=== PATIENT | female | born 1950 | race Caucasian/White ===

== ENCOUNTER 2017-03-14 07:38 | Inpatient (IN) | payer OTHER ==
[~2017-03-14] VITALS: Ht 157.5 cm; Wt 112.0 kg
[~2017-03-14 07:38] MED LIST: ASPI325T4 PO; DOCU-144 PO; ENOX40DI2 SC; GABA300C PO; IPRA3AMP HHN; LEVO500T72 PO; METF500T PO; NYST30PO5 TOP; POTA10TA15 PO; SIMV20TA6; ZOF4I IV; [UNRECOGNIZED DRUG - CODE] IV
[2017-03-14] MEDS ORDERED: ALBUTEROL 0.083% (NEB) 2.5 MG/3 ML AMP HHN STA (07:46)
[2017-03-14] MEDS ORDERED: IPRATROPIUM (NEB) 0.5 MG/2.5 ML AMP HHN ONE (08:00)
--- NOTE | 2017-03-14 08:11 | RADRPT ---
PROCEDURE: XR Chest. CLINICAL INDICATION: Chest pain TECHNIQUE: Single frontal view of the chest was obtained COMPARISON: CR CHEST 05/10/2015 FINDINGS: The heart is enlarged. The thoracic aorta is calcified. There are right upper lobe, right lower lobe and left lower lobe infiltrates. There is no pleural effusion or pneumothorax. RPTAT: AA IMPRESSION: Patchy right upper lobe, right lower lobe and left lower lobe infiltrates. Mild cardiomegaly. Calcified aorta consistent with atherosclerotic disease. .Rober Coughlin MD, Date Time Electronically viewed and signed by .Rober Coughlin MD, on 03/14/2017 08:10 .S/
[2017-03-14] MEDS ORDERED: CEFEPIME 2GM/50 ML (PMX) 50 ML IVPB STA (08:14)
[2017-03-14] MEDS ORDERED: SODIUM CHLORIDE 0.9% 1L BAG IV* STA (08:14)
[2017-03-14] MEDS ORDERED: VANCOMYCIN 1 GM (PMX) 250 ML IVPB ONE (08:30)
--- NOTE | 2017-03-14 10:54 | ERD ---
ER Documentation Chief Complaint Chief Complaint sob since waking up worse than normal. low o2 sat, no chest pain HPI Patient is a 66-year-old female with CHF and diabetes who presents with shortness of breath. The patient is altered per the medics report per the family. The patient is "not caring for herself". She was at 70% oxygen on her usual home oxygen. The patient was brought in by ambulance. The symptoms started a few days ago with cough. She has had no fevers. Her primary doctor is at [facility]. Please note the history and physical exam is limited secondary to the patient's mental status. ROS All systems reviewed and are negative except as per history of present illness. Medications Home Meds Active Scripts Levofloxacin* (Levaquin*) 500 Mg Tablet, 500 MG PO DAILY for 7 Days, TAB Prov:KERRIE RIOS MD 05/12/15 Ondansetron Hcl* (Zofran*) 2 Mg/Ml Soln, 4 MG IV Q6H Y for NAUSEA AND/OR VOMITING for 10 Days Prov:KERRIE RIOS MD 05/12/15 Potassium Chloride (Klor-Con M10) 10 Meq Tabsr, 10 MEQ PO DAILY for 10 Days Prov:KERRIE RIOS MD 05/12/15 Nystatin* (Nystop* Powder) 1 Applic Powder, 1 APPLIC TOP QID for 10 Days Prov:KERRIE RIOS MD 05/12/15 Methylprednisolone Sodium Succinate (Solu-Medrol) 125 Mg Soln, 60 MG IV Q6H for 7 Days Prov:KERRIE RIOS MD 05/12/15 Metformin Hcl (Glucophage) 500 Mg Tab, 1000 MG PO WITH BREAKFAST for 30 Days, TAB Prov:KERRIE RIOS MD 05/12/15 Ipratropium-Albuterol (Ipratropium-Albuterol) 3 Ml Nebu, 3 ML HHN Q4H RESP THERAPY for 10 Days Prov:KERRIE RIOS MD 05/12/15 Gabapentin* (Neurontin*) 300 Mg Cap, 300 MG PO DAILY for 30 Days, CAP Prov:KERRIE RIOS MD 05/12/15 Enoxaparin Sodium* (Enoxaparin Sodium*) 40 Mg/0.4 Ml Soln, 40 MG SC DAILY for 30 Days Prov:KERRIE RIOS MD 05/12/15 Docusate Sodium* (Colace*) 100 Mg Cap, 100 MG PO Q12H Y for CONSTIPATION for 30 Days, CAP Prov:KERRIE RIOS MD 05/12/15 Aspirin (Aspirin Lite-Coat) 325 Mg Tab, 325 MG PO DAILY for 30 Days, TAB Prov:KERRIE RIOS MD 05/12/15 Reported Medications Simvastatin (Simvastatin) 20 Mg Tablet 05/10/15 Allergies Allergies: Coded Allergies: erythromycin base (Unverified Allergy, Severe, 05/10/15) PMhx/Soc History of Surgery: No Hx Neurological Disorder: No Hx Respiratory Disorders: Yes (COPD) Hx Cardiac Disorders: Yes (HTN, CHF) Hx Miscellaneous Medical Probl: Yes Hx Alcohol Use: No Hx Substance Use: No Hx Tobacco Use: No Smoking Status: Never smoker FmHx Family History: diabetes Physical Exam Vitals Vital Signs Date Time Temp Pulse Resp B/P Pulse Ox O2 Delivery O2 Flow Rate FiO2 03/14/17 10:41 99 24 119/55 77 Mask 6.0 03/14/17 08:26 Non Rebreather 15.0 03/14/17 08:15 6 15.0 100 03/14/17 08:15 97 28 95 Non Rebreather Mask 15.0 100 03/14/17 07:56 Non Rebreather 10 03/14/17 07:46 97.6 92 28 148/87 95 Physical Exam Const: Moderate distress Head: Atraumatic Eyes: Normal Conjunctiva ENT: Normal External Ears, Nose and Mouth. Neck: Full range of motion..~ No meningismus. Resp: Rhonchorous breath sounds diffusely Cardio: Regular rate and rhythm, no murmurs Abd: Soft, non tender, non distended. Normal bowel sounds Skin: No petechiae or rashes Back: No midline or flank tenderness Ext: No cyanosis, or edema Neur: Awake but confused Result Diagram: 03/14/17 0800 03/14/17 0800 Results 24 hrs Laboratory Tests Test 03/14/17 08:00 03/14/17 10:18 White Blood Count 19.610^3/ul Red Blood Count 3.9510^6/ul Hemoglobin 11.4g/dl Hematocrit 40.0% Mean Corpuscular Volume 101.3fl Mean Corpuscular Hemoglobin 28.9pg Mean Corpuscular Hemoglobin Concent 28.5g/dl Red Cell Distribution Width 15.2% Platelet Count 56940^3/UL Mean Platelet Volume 10.6fl Neutrophils % 75.5% Lymphocytes % 11.0% Monocytes % 9.9% Eosinophils % 1.4% Basophils % 0.4% Nucleated Red Blood Cells % 0.5/100WBC Neutrophils # 14.810^3/ul Lymphocytes # 2.210^3/ul Monocytes # 1.910^3/ul Eosinophils # 0.310^3/ul Basophils # 0.110^3/ul Nucleated Red Blood Cells # 0.110^3/ul Prothrombin Time 14.7Sec Prothrombin Time Ratio 1.1 INR International Normalized Ratio 1.15 Activated Partial Thromboplast Time 24.3Sec Sodium Level 146mmol/L Potassium Level 4.7mmol/L Chloride Level 102mmol/L Carbon Dioxide Level 36mmol/L Anion Gap 13 Blood Urea Nitrogen 45mg/dl Creatinine 2.18mg/dl Glucose Level 163mg/dl Lactic Acid Level 1.1mmol/L 0.9mmol/L Calcium Level 9.3mg/dl Total Bilirubin 0.1mg/dl Direct Bilirubin 0.00mg/dl Indirect Bilirubin 0.1mg/dl Aspartate Amino Transf (AST/SGOT) 29IU/L Alanine Aminotransferase (ALT/SGPT) 25IU/L Alkaline Phosphatase 152IU/L Troponin I < 0.012ng/ml Total Protein 8.6g/dl Albumin 3.6g/dl Globulin 5.00g/dl Albumin/Globulin Ratio 0.72 Current Medications Medications (Trade) Dose Ordered Sig/Obed Route PRN Reason Start Time Stop Time Status Last Admin Dose Admin Albuterol (Proventil 0.083% (Neb)) 5 mg ONCE STAT HHN 03/14/17 07:46 03/14/17 07:47 DC 03/14/17 07:46 Ipratropium [place] (Atrovent 0.02% (Neb)) 0.5 mg ONCE ONCE HHN 03/14/17 08:00 03/14/17 08:01 DC 03/14/17 08:00 Sodium Chloride 3100 ml 3,100 ml BOLUS OVER 2 HOURS STAT IV* 03/14/17 08:14 03/14/17 08:22 DC 03/14/17 08:44 Cefepime HCl 50 ml @ 100 mls/hr ONCE STAT IVPB 03/14/17 08:14 03/14/17 08:43 DC Vancomycin HCl (Vancocin) 250 ml @ 125 mls/hr ONCE ONCE IVPB 03/14/17 08:30 03/14/17 10:29 DC 03/14/17 08:44 Procedures/MDM Chest x-ray shows pneumonia per radiology. EKG read by me: Rate/Rhythm: Regular rate and rhythm at a normal rate Intervals: Normal Impression: No evidence of ischemia or arrhythmia Admit MDM: Patient's infectious symptoms have not stabilized and the patient is at risk of rapid decompensation. The patient will be admitted for careful hydration, antibiotic therapy, and infectious source control. Severe Sepsis criteria: Infectious source: Pneumonia End organ damage indicated by: Creatinine greater than 2 Sepsis Management: Time of recognition of sepsis: Upon arrival Within 3 hours of recognition: Blood cultures x 2 before broad-spectrum antibiotics: Yes 30 ml/kg NS bolus Completed Initial lactate 1.1 Repeat lactate pending Time of recognition of septic shock: No septic shock Septic Shock Assessment: Any lactic acid > 4.0 No Persistent hypotension (SBP < 90 or 40 mmHg drop, MAP < 65) despite 30 mL/kg IV fluid bolus No Volume Re-assessment for Septic Shock (post 30 ml/kg bolus): No septic shock at this time Persistent Hypotension Treatment: Comfort care No Central line Not Required Vasopressor started Not required I considered further perfusion assessment with CVP measurement, SCVO2, bedside ultrasound volume assessment, passive leg raise, trial of further fluid bolus. And proceeded with 30 ml/kg fluid bolus of NSS, broad spectrum antibiotics, and admission. Accepting Care Team Current data and ongoing care discussed. Admitting Physician: Dr. Mendoza from [facility] as the patient has [facility] dental insurance coordinator(s): None Outstanding Data: Culture results and repeat lactic acid Critical Care: Critical care time 35 minutes excluding all billable procedures Emergent fluid management while maintaining close respiratory support. Provision of immediate and broad-spectrum antibiotic therapy. Simultaneous assessment for possible sources in order to direct targeted therapy. Consideration for invasive and chemical support to prevent cardiopulmonary collapse. Departure Diagnosis: Primary Impression: Severe sepsis Additional Impressions: Shortness of breath Pneumonia Pneumonia type: due to unspecified organism Laterality: right Lung location : upper lobe of lung Qualified Code: J18.1 - Pneumonia of right upper lobe due to infectious organism Condition: Serious ALDA CARRASCO MD Mar 14, 2017 10:54
[2017-03-14] MEDS ORDERED: ACETAMINOPHEN 325 MG TAB PO PRN ×2 (12:30→13:00)
[2017-03-14] MEDS ORDERED: DOCUSATE SODIUM 100 MG CAP PO PRN (12:30)
[2017-03-14] MEDS ORDERED: ONDANSETRON 4 MG INJ IV PRN ×3 (12:30→13:00)
--- NOTE | 2017-03-14 12:35 | HP ---
Date/Time of Note Date/Time of Note DATE: 03/14/17 TIME: 12:35 Assessment/Plan VTE Prophylaxis VTE Prophylaxis Intervention: heparin Assessment/Plan Assessment/Plan 1. Acute hypoxic respiratory failure secondary to pneumonia - Patient found to be saturating 70% prior to presenting to ED. Was still saturating in 80% on Ventimask - ABG showed respiratory acidosis and started on BIPAP - CXR showed RUL, RML, and LLL PNA. Started on Vanc and Cefepime - Pulmonology consulted and awaiting recommendations. - Repeat ABG and wean off BIPAP as tolerated. - Admitted to [facility] in past 04/2015 with same issues and resolved on BIPAP 2. Severe sepsis secondary to Pneumonia - Patient found tachypneic, tachycardiac, hypoxic, with elevated WBC - Lactic acid normal - Given fluid bolus in ED but hold off for now in setting of acute CHF - On Vancomycin and Cefepime - Steroids started and neb treatments 3. Acute on chronic diastolic heart failure - BNP 1250 - ECHO ordered - Lasix IV - Cardiology consultation placed and awaiting further recommendations 4. EDWIN , may be secondary to cardiorenal - Will continue to monitor and if no improvement will consult Nephrology - Will order renal US 5. Anemia - will order iron studies - no acute bleeding appreciated 6. Diabetes Mellitus - A1c 6.6 - Hold home metformin - accuchecks and ISS 7. HTN - stable - continue monitoring 8. COPD - no wheezing appreciated - neb treatments 9. Diet - NPO until more awake 10. Code status - Full, but will clarify with family 11. GI ppx - Pepcid 12. DVT ppx - Heparin 13. Disposition - Will admit to telemetry for further evaluation and stabilization. Once stable with transfer to [place] HPI/ROS Admit Date/Time Admit Date/Time 03/14/17 Hx of Present Illness 66 yo F with PMH DM, obesity, COPD, HTN, and CHF presented to ED from home. Per EMS patient was told by family she has not been caring for herself and was found to be saturating in the 70%. Patient was altered and unable to obtain history. Patient was just grunting when asked name and location. History obtained from ED, past medical encounters, and EMS. Per ED physician, patient was brought in by ambulance and is a [place] patient but was not stable to transfer due to desaturating while even on ventimask. During interview, patient was on ventimask, saturating 84%. Patient was last seen at [facility] in 2014 for similar issues. CXR performed showed patchy right upper lobe, right lower lobe and left lower lobe infiltrates. ABG performed showed pH 7.174, PCO2 81 and was started on BIPAP. She was also found to have mild cardiomegaly on CXR with BNP 1250. ROS All 12 systems reviewed but due to patients altered mental status was unable to obtain fully. Constitutional: disoriented Respiratory: cough, shortness of breath, No wheezing Cardiovascular: edema, No chest pain Psychological: confusion PMH/Family/Social Past Medical History Medical History: congestive heart failure, diabetes, high cholesterol, hypertension Past Surgical History Past Surgical Hx: no surgical history Family History Significant Family History: no pertinent family hx Social History Alcohol Use: none Smoking Status: Never smoker Drug Use: none Exam/Review of Systems Vital Signs Vitals Vital Signs Date Time Temp Pulse Resp B/P Pulse Ox O2 Delivery O2 Flow Rate FiO2 03/14/17 12:13 102 23 135/62 84 Non Rebreather 8.0 03/14/17 11:15 97.6 03/14/17 08:15 100 Exam Constitutional: distress, No alert, No oriented Psych: confusion Head: atraumatic, normocephalic Eyes: nl conjunctiva, nl sclera ENMT: mucosa pink and moist Neck: supple Respiratory: crackles/rales, diminished breath sounds, labored breathing, other (regular rhythm, tachycardia), No wheezing Cardiovascular: edema, No murmurs/extra sounds, No systolic murmur Gastrointestinal: bowel sounds, non-tender, soft, No ascites, No distended, No rebound or guarding, No tender Musculoskeletal: nl extremities to inspection Extremities: edema, No clubbing, No cyanosis Neurological: confused, lethargic, No nl mental status Skin: No ecchymosis, No laceration Lymph: nl lymph nodes Labs Result Diagram: 03/14/17 0800 03/14/17 0800 Medications Medications home medications reviewed Procedures Procedures PROCEDURE: XR Chest. CLINICAL INDICATION: Chest pain TECHNIQUE: Single frontal view of the chest was obtained COMPARISON: CR CHEST 05/10/2015 FINDINGS: The heart is enlarged. The thoracic aorta is calcified. There are right upper lobe, right lower lobe and left lower lobe infiltrates. There is no pleural effusion or pneumothorax. RPTAT: AA IMPRESSION: Patchy right upper lobe, right lower lobe and left lower lobe infiltrates. Mild cardiomegaly. Calcified aorta consistent with atherosclerotic disease. GABRIEL GILMORE MD Mar 14, 2017 12:35
[2017-03-14] MEDS: ALBUTEROL/IPRATROPIUM (NEB) 3 ML AMP HHN SCH ×2 (12:55→22:45)
[2017-03-14] MEDS ORDERED: NACL 0.9% 3 ML SYG IV SCH (13:00)
[2017-03-14] MEDS ORDERED: MAGNESIUM HYDROXIDE 30ML CUP PO PRN (13:00)
[2017-03-14] MEDS ORDERED: ALBUTEROL 0.083% (NEB) 2.5 MG/3 ML AMP HHN PRN (13:00)
[2017-03-14] MEDS ORDERED: VANCOMYCIN IV PER PHARMACY XX SCH (13:00)
[2017-03-14] MEDS: METHYLPREDNISOLONE 125 MG INJ IV SCH ×2 (13:32→18:30)
[2017-03-14] MEDS ORDERED: CEFEPIME 2GM/50 ML (PMX) 50 ML IVPB SCH (14:00)
--- NOTE | 2017-03-14 16:32 | RADRPT ---
PROCEDURE: Renal US. CLINICAL INDICATION: Renal insufficiency TECHNIQUE: Multiple sonographic images of the kidneys were obtained. COMPARISON: No prior studies are available for comparison. FINDINGS: The kidneys are well visualized. The right kidney measures 11.8 cm. The left kidney measures 13.0 cm . Normal renal cortical echogenicity. No evidence of shadowing renal calculi. No hydronephrosis. No rmal appearance of the urinary bladder. IMPRESSION: Normal renal ultrasound. RPTAT:AAJJ Physician Esau Date Time Electronically viewed and signed by Yamini Cotton Physician on 03/14/2017 16:32 /
[2017-03-14] MEDS ORDERED: GLUCOSE GEL 15 GRAM TUBE BUCCAL PRN (17:00)
[2017-03-14] MEDS ORDERED: GLUCOSE GEL 15 GRAM TUBE PO PRN ×2 (17:00)
[2017-03-14] MEDS ORDERED: DEXTROSE 50% 50 ML SYRINGE IV PRN ×2 (17:00)
[2017-03-14] MEDS ORDERED: GLUCAGON 1 MG INJ IM PRN (17:00)
--- NOTE | 2017-03-14 18:27 | RADRPT ---
Echocardiogram Report Patient Name: DESI ESCALANTE Gender: Female Date: 1950 Study Date: 14-Mar-2017 Armature Tester: Prieto Blackwood RDCS Location: [facility] Ref. Physician: GABRIEL GILMORE Quality: Good Procedures: Transthoracic echocardiogram with complete 2D, M-Mode, and doppler examination. Indications: Shortness of breath. 2D/M Mode Doppler Measurement Value Normal Ranges Measurement Value Normal Ranges LVIDd 2D 4.2 3.5 - 5.6 cm AV Peak [place] 1.7 m/sec LVIDs 2D 2.5 2.1 - 4.1 cm AV Peak PG 11.8 mmHg LVPWd 2D 1.0 0.6 - 1.1 cm LVOT Peak [place] 1.1 m/sec IVSd 2D 1.1 0.6 - 1.1 cm LVOT Peak PG 4.7 mmHg AoR Diam 2D 2.7 2.0 - 3.7 cm MV E Peak [place] 1.0 m/sec EDV 2D 77.0 cm3 MV A Peak [place] 0.8 m/sec ESV 2D 16.0 cm3 MV E/A 1.3 LA Dimen 2D 2.9 2.3 - 4.0 cm MV Decel Time 158 msec MV Decel [place] 6 MV E/A 1.3 TR Peak [place] 2.9 m/sec TR Peak PG 33.2 mmHg RVSP 48.0 mmHg Findings Left Ventricle: Normal left ventricular systolic function. Normal left ventricular cavity size. Mild concentric left ventricular hypertrophy. Ejection fraction is visually estimated at 6065 %. Right Ventricle: Normal right ventricular size. Normal right ventricular systolic function. Left Atrium: The left atrium is normal in size. Right Atrium: The right atrium is normal in size. Mitral Valve: Mitral valve leaflets appear mildly thickened. Mild mitral annular calcification. Trace mitral regurgitation. Aortic Valve: No significant aortic stenosis or insufficiency. Aortic cusps appear mildly calcified. Tricuspid Valve: Normal appearance of the tricuspid valve. Estimated peak PA systolic pressure 48 mmHg. There is mild tricuspid regurgitation. Pulmonic Valve: Pulmonic valve not well visualized. Pericardium: Normal pericardium with no significant pericardial effusion. Aorta: Normal aortic root. IVC: Dilated IVC without respiratory collapse, however, patient on bipap. Conclusions 1.Normal left ventricular systolic function. Normal left ventricular cavity size. Mild concentric left ventricular hypertrophy. Ejection fraction is visually estimated at 60-65 %. 2.Mitral valve leaflets appear mildly thickened. Mild mitral annular calcification. Trace mitral regurgitation. 3.Normal appearance of the tricuspid valve. Estimated peak PA systolic pressure 48 mmHg. There is mild tricuspid regurgitation. Electronically Signed By: Jorge Stewart 14-Mar-2017 18:27:05 -0700 Patient Name: DESI ESCALANTE Study Date: 14-Mar-2017 [id number]
--- NOTE | 2017-03-14 18:27 | RADRPT ---
Echocardiogram Report Patient Name: DESI ESCALANTE Gender: Female Date: 1950 Study Date: 14-Mar-2017 Pharmacy Operations Specialist: Prieto Blackwood RDCS Location: [facility] Ref. Physician: GABRIEL GILMORE Quality: Good Procedures: Transthoracic echocardiogram with complete 2D, M-Mode, and doppler examination. Indications: Shortness of breath. 2D/M Mode Doppler Measurement Value Normal Ranges Measurement Value Normal Ranges LVIDd 2D 4.2 3.5 - 5.6 cm AV Peak [place] 1.7 m/sec LVIDs 2D 2.5 2.1 - 4.1 cm AV Peak PG 11.8 mmHg LVPWd 2D 1.0 0.6 - 1.1 cm LVOT Peak [place] 1.1 m/sec IVSd 2D 1.1 0.6 - 1.1 cm LVOT Peak PG 4.7 mmHg AoR Diam 2D 2.7 2.0 - 3.7 cm MV E Peak [place] 1.0 m/sec EDV 2D 77.0 cm3 MV A Peak [place] 0.8 m/sec ESV 2D 16.0 cm3 MV E/A 1.3 LA Dimen 2D 2.9 2.3 - 4.0 cm MV Decel Time 158 msec MV Decel [place] 6 MV E/A 1.3 TR Peak [place] 2.9 m/sec TR Peak PG 33.2 mmHg RVSP 48.0 mmHg Findings Left Ventricle: Normal left ventricular systolic function. Normal left ventricular cavity size. Mild concentric left ventricular hypertrophy. Ejection fraction is visually estimated at 6065 %. Right Ventricle: Normal right ventricular size. Normal right ventricular systolic function. Left Atrium: The left atrium is normal in size. Right Atrium: The right atrium is normal in size. Mitral Valve: Mitral valve leaflets appear mildly thickened. Mild mitral annular calcification. Trace mitral regurgitation. Aortic Valve: No significant aortic stenosis or insufficiency. Aortic cusps appear mildly calcified. Tricuspid Valve: Normal appearance of the tricuspid valve. Estimated peak PA systolic pressure 48 mmHg. There is mild tricuspid regurgitation. Pulmonic Valve: Pulmonic valve not well visualized. Pericardium: Normal pericardium with no significant pericardial effusion. Aorta: Normal aortic root. IVC: Dilated IVC without respiratory collapse, however, patient on bipap. Conclusions 1.Normal left ventricular systolic function. Normal left ventricular cavity size. Mild concentric left ventricular hypertrophy. Ejection fraction is visually estimated at 60-65 %. 2.Mitral valve leaflets appear mildly thickened. Mild mitral annular calcification. Trace mitral regurgitation. 3.Normal appearance of the tricuspid valve. Estimated peak PA systolic pressure 48 mmHg. There is mild tricuspid regurgitation. Electronically Signed By: Jorge Stewart 14-Mar-2017 18:27:05 -0700 Patient Name: DESI ESCALANTE Study Date: 14-Mar-2017 [id number]
--- NOTE | 2017-03-14 18:27 | RADRPT ---
Echocardiogram Report Patient Name: DESI ESCALANTE Gender: Female Date: 1950 Study Date: 14-Mar-2017 Tare Weigher: Prieto Blackwood RDCS Location: [facility] Ref. Physician: GABRIEL GILMORE Quality: Good Procedures: Transthoracic echocardiogram with complete 2D, M-Mode, and doppler examination. Indications: Shortness of breath. 2D/M Mode Doppler Measurement Value Normal Ranges Measurement Value Normal Ranges LVIDd 2D 4.2 3.5 - 5.6 cm AV Peak [place] 1.7 m/sec LVIDs 2D 2.5 2.1 - 4.1 cm AV Peak PG 11.8 mmHg LVPWd 2D 1.0 0.6 - 1.1 cm LVOT Peak [place] 1.1 m/sec IVSd 2D 1.1 0.6 - 1.1 cm LVOT Peak PG 4.7 mmHg AoR Diam 2D 2.7 2.0 - 3.7 cm MV E Peak Fr[place] 1.0 m/sec EDV 2D 77.0 cm3 MV A Peak [place] 0.8 m/sec ESV 2D 16.0 cm3 MV E/A 1.3 LA Dimen 2D 2.9 2.3 - 4.0 cm MV Decel Time 158 msec MV Decel [place] 6 MV E/A 1.3 TR Peak Frans[place] 2.9 m/sec TR Peak PG 33.2 mmHg RVSP 48.0 mmHg Findings Left Ventricle: Normal left ventricular systolic function. Normal left ventricular cavity size. Mild concentric left ventricular hypertrophy. Ejection fraction is visually estimated at 6065 %. Right Ventricle: Normal right ventricular size. Normal right ventricular systolic function. Left Atrium: The left atrium is normal in size. Right Atrium: The right atrium is normal in size. Mitral Valve: Mitral valve leaflets appear mildly thickened. Mild mitral annular calcification. Trace mitral regurgitation. Aortic Valve: No significant aortic stenosis or insufficiency. Aortic cusps appear mildly calcified. Tricuspid Valve: Normal appearance of the tricuspid valve. Estimated peak PA systolic pressure 48 mmHg. There is mild tricuspid regurgitation. Pulmonic Valve: Pulmonic valve not well visualized. Pericardium: Normal pericardium with no significant pericardial effusion. Aorta: Normal aortic root. IVC: Dilated IVC without respiratory collapse, however, patient on bipap. Conclusions 1.Normal left ventricular systolic function. Normal left ventricular cavity size. Mild concentric left ventricular hypertrophy. Ejection fraction is visually estimated at 60-65 %. 2.Mitral valve leaflets appear mildly thickened. Mild mitral annular calcification. Trace mitral regurgitation. 3.Normal appearance of the tricuspid valve. Estimated peak PA systolic pressure 48 mmHg. There is mild tricuspid regurgitation. Electronically Signed By: Jorge Stewart 14-Mar-2017 18:27:05 -0700 Patient Name: DESI ESCALANTE Study Date: 14-Mar-2017 [id number]
[2017-03-14] MEDS ORDERED: VANCOMYCIN 1 GM in NS 250 ML IVPB ONE (18:30)
[2017-03-14] MEDS: FUROSEMIDE 100 MG INJ IV SCH (18:33)
[2017-03-14] MEDS: FAMOTIDINE 20 MG INJ IV SCH (20:45)
[2017-03-14] MEDS: HEPARIN 5,000 UNIT/0.5 ML VIAL SC SCH (21:07)
[2017-03-14] MEDS: ATORVASTATIN 20 MG TAB PO SCH (21:17)
[2017-03-14] MEDS: INSULIN ASPART [NOVOLOG] 3 ML PEN SC SCH (21:18)
[2017-03-14] MEDS ORDERED: LORAZEPAM 2 MG INJ IV ONE (21:26)
[2017-03-15] VITALS (30 sets, daily range): BP systolic 112–146; BP diastolic 43–95; PULSE 80–107; RESP 17–30; TEMP 97.8; Ht 157.5 cm; Wt 112.0 kg
[2017-03-15] MEDS: ALBUTEROL/IPRATROPIUM (NEB) 3 ML AMP HHN SCH ×6 (00:37→21:20)
[2017-03-15] MEDS: INSULIN ASPART [NOVOLOG] 3 ML PEN SC SCH ×6 (01:00→21:05)
[2017-03-15] MEDS: ACCU-CHEK XX SCH (02:00)
--- NOTE | 2017-03-15 03:55 | CONS ---
DATE OF ADMISSION: 03/14/2017 DATE OF CONSULTATION: 03/14/2017 PULMONARY CONSULTATION REASON FOR CONSULT: Hypoxemic and hypercapnic respiratory failure. Thank you, Dr. Nelson, for this consultation. HISTORY OF PRESENT ILLNESS: This is a morbidly obese 66-year-old lady who presented to the emergenc y room with increasing shortness of breath, orthopnea, PND. She is a poor historian, currently on B iPAP. No family members are present, history is entirely from the chart. On admission found to be hypoxemic and hypercapnic, placed on noninvasive positive pressure ventilation. Initial arterial bl ood gas pH 7.17, pCO2 of 81. PAST MEDICAL HISTORY: 1. COPD. 2. Hypertension. 3. Hyperlipidemia. 4. Obstructive sleep apnea. 5. Morbid obesity. MEDICATIONS: Per chart. ALLERGIES: NONE. SOCIAL HISTORY: Tobacco unknown. SYSTEMS REVIEW: Currently unable to perform. PHYSICAL EXAMINATION: GENERAL: Moderately obese lady on BiPAP, arousable but not answering questions or following command s. VITAL SIGNS: Currently afebrile, temperature 98, pulse is 100, blood pressure 135/62, O2 sat 96% on FIO2 of 50%. NECK: Supple. No JVD or lymphadenopathy. CARDIAC: S1, S2, no added sounds or murmurs. CHEST: Diminished air entry. ABDOMEN: Soft, nontender. No guarding or rebound. EXTREMITIES: No cyanosis, clubbing, edema. NEUROLOGIC: Unable to assess. LABORATORIES: ABG: pH 7.17, pCO2 of 81, pO2 of 176. BNP 1250. BUN 45, creatinine 2.18. Lactic a roque 0.9. DIAGNOSTIC DATA: Chest x-ray shows patchy right upper lobe and lower lobe infiltrates. IMPRESSION AND PLAN: 1. Hypoxemic and hypercapnic respiratory failure. 2. Likely underlying obstructive sleep apnea. 3. Likely congestive cardiac failure. 4. Chronic renal insufficiency. 5. Incomplete data. RECOMMENDATIONS: 1. Continued noninvasive positive pressure ventilation with frequent arterial blood gases. 2. Continue broad-spectrum antibiotics. 3. Steroid taper. 4. Bronchodilators. 5. DVT and GI prophylaxis. Overall prognosis is guarded. Dictated By: BRENDA MARIE/DERECK Conf#: [id number] DID#: [id number]
--- NOTE | 2017-03-15 04:04 | CONS ---
DATE OF ADMISSION: 03/14/2017 DATE OF CONSULTATION: 03/14/2017 CARDIAC CONSULTATION REASON FOR CONSULTATION: Congestive heart failure exacerbation. REQUESTING PHYSICIAN: Dr. Nelson from the hospitalist service. HISTORY OF PRESENT ILLNESS: Ms. Resendiz is a 66-year-old female with a history of diabetes mellitus, hypertension, chronic obstructive pulmonary disease, obesity, who had initially presented with wors ening shortness of breath. Upon arrival in the emergency department, temperature of 97.6, blood pre ssure 140/87, pulse 92, respiratory rate 28, saturating 95%. The patient's labs revealed white coun t 19.6, hemoglobin 11.4, platelet count of 288. Sodium of 146, potassium 4.7, creatinine 2.1, BUN 4 5. INR of 1.1. ABG revealing a pH of 7.17, PaO2 of 176, pCO2 of 81. The patient underwent a chest x-ray revealing patchy right upper lobe, right lower lobe and left lower lobe infiltrates, mild car diomegaly and a renal ultrasound revealed normal renal ultrasound. The patient's electrocardiogram with normal sinus rhythm, rate 95, normal axis, normal intervals, no significant ST-T abnormalities. The patient has required BiPAP and remains in ICU on BiPAP at this time and initiated on steroids and Lasix diuresis. PAST MEDICAL HISTORY: As above in HPI. MEDICATIONS CURRENTLY IN HOSPITAL: 1. Cefepime IV daily. 2. Aspirin 325 mg daily. 3. Lovenox daily. 4. Lipitor 20 mg at bedtime. 5. Pepcid 20 mg IV daily. 6. Lasix 60 mg IV b.i.d. 7. Insulin sliding scale. 8. Solu-Medrol 60 mg IV q. 6. 9. P.r.n. Zofran. 10. P.r.n. Tylenol. 11. Vancomycin. 12. Albuterol. 13. Colace. ALLERGIES: ERYTHROMYCIN. SOCIAL HISTORY: No tobacco, social ETOH, no illicit drug use. FAMILY HISTORY: Negative for sudden cardiac or early CAD. REVIEW OF SYSTEMS: As in HPI. CONSTITUTIONAL: No fevers, chills. PULMONARY: Shortness of breath, COPD. CARDIOVASCULAR: No current chest pain, shortness of breath. GASTROINTESTINAL: No vomiting. GENITOURINARY: No hematuria but renal failure. PSYCHIATRIC: No documented psychiatric history. NEUROLOGIC: No documented history of CVA. PHYSICAL EXAMINATION VITAL SIGNS: Temperature of 97.6, blood pressure most recently 135/62, pulse 98, saturating 98% on FIO2 of 50%. GENERAL: The patient is awake, BiPAP in place. NECK: JVP difficult to assess secondary to body habitus. HEART: Regular rate and rhythm. Normal S1, increased S2, I/ systolic murmur, nondisplaced PMI. ABDOMEN: Obese, soft. EXTREMITIES: 1+ edema bilaterally, 1+ pulses bilaterally, posterior tibial. LABORATORY DATA: As above in HPI. No further labs for my review at this time. IMAGING STUDIES: As above in HPI. No further imaging studies for my review at this time. ELECTROCARDIOGRAM: As above in HPI. No further electrocardiograms for my review at this time. IMPRESSION: 1. Congestive heart failure exacerbation, question systolic versus diastolic, likely acute on chron ic. 2. Dyslipidemia. 3. Hypertension, borderline. 4. Increased BNP consistent with patient's congestive heart failure exacerbation. 5. Hypercarbic respiratory failure on BiPAP. 6. Chronic obstructive pulmonary disease. 7. Diabetes mellitus. 8. Obesity. 9. Renal failure. 10. Leukocytosis. 11. Anemia. RECOMMENDATIONS: 1. At this time, would admit patient to telemetry under ICU monitoring. 2. Continue the patient's Lasix diuresis, following strict I's and O's, creatinine to grade diuresi s closely. 3. Continue the patient's aspirin at this time for prophylaxis against cardiovascular events and co mplete a rule out for myocardial infarction to ensure the patient's constellation of symptoms are no t the result or have not resulted in acute coronary syndrome versus acute myocardial infarction. 4. Continue the patient's BiPAP for respiratory support at this time. 5. Continue the patient's steroids and bronchodilators. 6. Check a 2D echocardiogram to further assess the patient's ejection fraction, wall motion and any major valve abnormalities. 7. Continue the patient's statin and adjust according to a fasting lipid panel that should be check ed and discontinue the patient's cefepime and follow up all culture data. Thank you for allowing me to take part in the care of this patient. I will continue to follow very closely with you with further recommendations to be made as the patient progresses through her [facility] clinical course. Dictated By: NEHA BOYLE/DERECK Conf#: [id number] DID#: [id number] CC: Dr. Nelson-hospital service;*End*
[2017-03-15] MEDS: FUROSEMIDE 100 MG INJ IV SCH ×2 (05:54→17:35)
[2017-03-15] MEDS: METHYLPREDNISOLONE 125 MG INJ IV SCH ×4 (06:42→20:51)
[2017-03-15] MEDS ORDERED: ENOXAPARIN 40 MG/0.4 ML SYG SC SCH (09:00)
[2017-03-15] MEDS: HEPARIN 5,000 UNIT/0.5 ML VIAL SC SCH (09:00)
[2017-03-15] MEDS ORDERED: GABAPENTIN 300 MG CAP PO SCH (09:00)
[2017-03-15] MEDS: ENOXAPARIN 30 MG/0.3 ML SYG SC SCH (09:15)
--- NOTE | 2017-03-15 09:37 | RADRPT ---
PROCEDURE: XR Chest. CLINICAL INDICATION: Respiratory failure TECHNIQUE: Single frontal view of the chest was obtained COMPARISON: 03/14/2017 FINDINGS: No pneumothorax. Probable small bilateral pleural effusions. Stable patchy, heterogeneous opacities involving bilateral lungs, right greater than left. Stable enlarged cardiac silhouette. Enlarged and calcified aortic arch suggestive of chronic systemi c hypertension. No acute osseous abnormality. IMPRESSION: Stable chest radiograph. No convincing interval change compared to chest radiograph from prior day. RPTAT: EE Physician Ema Date Time Electronically viewed and signed by Physician Ema on 03/15/2017 09:37 /
[2017-03-15] MEDS ORDERED: CEFEPIME 2GM/50 ML (PMX) 50 ML IVPB SCH (11:00)
--- NOTE | 2017-03-15 11:14 | PN ---
Date/Time of Note Date/Time of Note DATE: 03/15/17 TIME: 11:14 Assessment/Plan VTE Prophylaxis VTE Prophylaxis Intervention: LMWH Lines/Catheters IV Catheter Type (from Nrsg): Peripheral IV Urinary Cath still in place: Yes Reason Cath still needed: terminal illness/intractable pain Assessment/Plan Assessment/Plan 1. Acute hypoxic respiratory failure secondary to pneumonia - Patient in ICU on full face BIPAP mask and keeps pulling it off - Saturating in 90s while on BIPAP and 88% on ventimask - Pulmonology on board and consultation appreciated - ABG this am shows improvement in respiratory acidosis, 7.25/67/75.4 - Patient found to be saturating 70% prior to presenting to ED - CXR showed RUL, RML, and LLL PNA. Started on Vanc and Cefepime - Once stabilized, will transfer to [place] 2. Severe sepsis secondary to Pneumonia-improving - Patient afebrile with improving WBC - Lactic acid normal - On Vancomycin and Cefepime - Steroids started and neb treatments 3. Acute on chronic diastolic heart failure - BNP 1250 - ECHO shows EF 60% - Lasix IV - Cardiology consultation appreciated 4. EDWIN -resolved - Continue monitoring 5. Anemia - will order iron studies - no acute bleeding appreciated 6. Diabetes Mellitus - A1c 6.6 - Hold home metformin - accuchecks and ISS 7. HTN - stable - continue monitoring 8. COPD - Nebs and steroids on board 9. Disposition - Continue monitoring in ICU setting. Once patient stable, will transfer to [place] >35 minutes of critical care time was spent with patient at bedside Subjective 24 Hr Interval Summary Free Text/Dictation Patient more awake this am but still slightly confused. On full Bipap mask but experiencing leak due to roundness of face. Being tried on ventimask. No acute overnight events. Exam/Review of Systems Vital Signs Vitals Vital Signs Date Time Temp Pulse Resp B/P Pulse Ox O2 Delivery O2 Flow Rate FiO2 03/15/17 08:00 95 28 130/62 94 BIPAP 03/15/17 07:30 98.0 03/15/17 06:33 50 03/14/17 12:13 8.0 Intake and Output 03/14/17 03/14/17 03/15/17 15:00 23:00 07:00 Output Total 300 ml Balance -300 ml Exam General: pleasantly confused, awake. belly breathing, obese HEENT: NC/AT. PERRL. EOM I Lungs: diffuse rhonchi, wet cough, slight expiratory wheezing, diminished lung sounds CVS: Tachycardic, normal rhythm. no murmurs GI: soft, NT, ND. +BS. no rebound or guarding Ext:: bilateral lower extremity edema Skin: erythema shins bilaterally Results Result Diagram: 03/15/17 0735 03/15/17 0735 Results 24 hrs Laboratory Tests Test 03/14/17 11:39 03/14/17 12:09 03/14/17 18:04 03/14/17 20:56 Hemoglobin A1c 6.6 H Lactic Acid Level 0.9 B-Type Natriuretic Peptide 1250 H Blood Gas Specimen Source Blood arterial Arterial Blood Date Drawn 03/14/2017 2:00:48 PM Arterial Blood pH (Temp corrected) 7.174 *L Arterial Blood pCO2 (Temp correct) 81.1 *H Arterial Blood pO2 (Temp corrected) 176.6 H Arterial Blood HCO3 29.2 H Arterial Blood Base Excess -1.0 Arterial Blood Oxygen Saturation 99.2 H Wesley Test ACCEPTAB Arterial Blood Gas Puncture Site Right Radial Arterial Blood Carboxyhemoglobin 0.3 Arterial Blood Methemoglobin 0.4 Blood Gas A-a O2 Differential 455.3 H Oxyhemoglobin Percent 98.5 Total Hemoglobin 11.9 L Blood Gas Temperature 37.0 Blood Gas Respiration Rate 14.0 Blood Gas Actual Respiration Rate 23 Blood Gas Modality MASK - BIPAP FiO2 100.0 Blood Gas Critical Value Read Back DR DANILO Alexander Blood Gas Notified Whom JLD Blood Gas Notified Time 03/14/2017 2:12:02 PM Creatine Kinase 41 Creatine Kinase Index 4.2 Creatinine Kinase MB (Mass) 1.72 Troponin I < 0.012 Bedside Glucose 158 Test 03/15/17 00:30 03/15/17 06:16 03/15/17 07:00 03/15/17 07:35 Creatine Kinase 32 25 Creatine Kinase Index 3.8 4.4 Creatinine Kinase MB (Mass) 1.20 1.09 Troponin I < 0.012 < 0.012 Bedside Glucose 165 Blood Gas Specimen Source Blood arterial Arterial Blood Date Drawn 03/15/2017 8:30:45 AM Arterial Blood pH (Temp corrected) 7.270 *L Arterial Blood pCO2 (Temp correct) 64.9 H Arterial Blood pO2 (Temp corrected) 80.1 Arterial Blood HCO3 29.1 H Arterial Blood Base Excess 1.0 Arterial Blood Oxygen Saturation 95.3 Wesley Test ACCEPTAB Arterial Blood Gas Puncture Site Right Radial Arterial Blood Carboxyhemoglobin 0.3 Arterial Blood Methemoglobin 0.5 Blood Gas A-a O2 Differential 203.4 H Oxyhemoglobin Percent 94.5 Total Hemoglobin 11.3 L Blood Gas Temperature 37.0 Blood Gas Respiration Rate 22.0 Blood Gas Actual Respiration Rate 22 Blood Gas Modality MASK - BIPAP FiO2 50.0 Blood Gas IPAP/EPAP Ratio 18/8 Blood Gas Critical Value Read Back E CABUNGAL RN Blood Gas Notified Whom DT Blood Gas Notified Time 03/15/2017 8:49:21 AM White Blood Count 13.4 #H Red Blood Count 3.49 L Hemoglobin 10.0 L Hematocrit 35.2 L Mean Corpuscular Volume 100.9 Mean Corpuscular Hemoglobin 28.7 L Mean Corpuscular Hemoglobin Concent 28.4 L Red Cell Distribution Width 15.1 H Platelet Count 288 Mean Platelet Volume 10.5 H Neutrophils % 88.8 H Lymphocytes % 6.1 L Monocytes % 2.5 Eosinophils % 0.0 Basophils % 0.1 Nucleated Red Blood Cells % 0.5 H Neutrophils # 11.9 H Lymphocytes # 0.8 Monocytes # 0.3 Eosinophils # 0.0 Basophils # 0.0 Nucleated Red Blood Cells # 0.1 H Sodium Level 148 H Potassium Level 4.9 Chloride Level 110 Carbon Dioxide Level 33 H Anion Gap 10 Blood Urea Nitrogen 41 H Creatinine 1.07 #H Glucose Level 180 Calcium Level 8.7 Phosphorus Level 4.2 Magnesium Level 2.4 Albumin 3.1 L Triglycerides Level 185 H Cholesterol Level 99 L LDL Cholesterol, Calculated 42 HDL Cholesterol 20 L Cholesterol/HDL Ratio 4.9 Test 03/15/17 08:00 03/15/17 09:06 Blood Gas Specimen Source Blood arterial Arterial Blood Date Drawn 03/14/2017 8:40:31 PM Arterial Blood pH (Temp corrected) 7.255 *L Arterial Blood pCO2 (Temp correct) 67.0 H Arterial Blood pO2 (Temp corrected) 75.4 L Arterial Blood HCO3 29.1 H Arterial Blood Base Excess 0.7 Arterial Blood Oxygen Saturation 95.6 Wesley Test ACCEPTAB Arterial Blood Gas Puncture Site Left Radial Arterial Blood Carboxyhemoglobin 0.3 Arterial Blood Methemoglobin 0.3 Blood Gas A-a O2 Differential 205.7 H Oxyhemoglobin Percent 95.0 Total Hemoglobin 11.4 L Blood Gas Temperature 37.0 Blood Gas Respiration Rate 20.0 Blood Gas Actual Respiration Rate 32 Blood Gas Modality MASK - BIPAP FiO2 50.0 Blood Gas Pressure Support 10 Blood Gas IPAP/EPAP Ratio 18/8 Blood Gas Critical Value Read Back STEVIE TERRY Blood Gas Notified Whom JANETH Blood Gas Notified Time 03/14/2017 8:51:34 PM Bedside Glucose 182 Medications Medications Current Medications Aspirin (Aspirin) 325 mg DAILY PO ; Start 03/15/17 at 09:00 Docusate Sodium (Colace) 100 mg Q12H PRN PO CONSTIPATION; Start 03/14/17 at 12: 30 Atorvastatin Calcium (Lipitor) 20 mg HS PO Last administered on 03/14/17 21:17 ; Admin Dose 20 MG; Start 03/14/17 at 21:00 Enoxaparin Sodium (Lovenox) 30 mg DAILY SC Last administered on 03/15/17 09:15 ; Admin Dose 30 MG; Start 03/15/17 at 09:00 Ondansetron HCl (Zofran Inj) 4 mg Q6H PRN IV NAUSEA AND/OR VOMITING; Start 03/14/17 at 13:00 Acetaminophen (Tylenol Tab) 650 mg Q6H PRN PO PAIN LEVEL 1-3 OR FEVER; Start 03/14/17 at 13:00 Magnesium Hydroxide (Milk Of Mag) 30 ml DAILY PRN PO CONSTIPATION; Start at 13:00 Famotidine (Pepcid Iv) 20 mg Q24H IV Last administered on 03/14/17 20:45; Admin Dose 20 MG; Start 03/14/17 at 21:00 Heparin Sodium (Porcine) (Heparin (5000 Units/0.5 ml)) 5,000 unit Q12 SC Last administered on 03/14/17 21:07; Admin Dose 5,000 UNIT; Start 03/14/17 at 21:00 Methylprednisolone Sodium Succinate 60 mg 60 mg Q6 IV Last administered on 03/15 06:42; Admin Dose 60 MG; Start 03/14/17 at 13:30 Cefepime HCl (Maxipime 2gm/50 ml (Pmx)) 50 ml @ 100 mls/hr Q24H IVPB ; Start 03/15/17 at 11:00; Stop 03/15/17 at 14:00 Diagnostic Test (Pha) (Accu-Chek) 1 ea 02 XX ; Start 03/15/17 at 02:00 Insulin Aspart (Novolog Insulin Pen) NOVOLOG *MODERATE* ALGORI... Q4 SC Last administered on 03/15/17t 09:15; Admin Dose 2 UNIT; Start 03/14/17 at 17:00 Miscellaneous Information 1 ea NOTE XX ; Start 03/14/17 at 17:00 Glucose (Glutose) 15 gm Q15M PRN PO DECREASED GLUCOSE; Start 03/14/17 at 17:00 Glucose (Glutose) 22.5 gm Q15M PRN PO DECREASED GLUCOSE; Start 03/14/17 at 17: 00 Dextrose (D50w Syringe) 25 ml Q15M PRN IV DECREASED GLUCOSE; Start 03/14/17 at 17:00 Dextrose (D50w Syringe) 50 ml Q15M PRN IV DECREASED GLUCOSE; Start 03/14/17 at 17:00 Glucagon (Glucagen) 1 mg Q15M PRN IM DECREASED GLUCOSE; Start 03/14/17 at 17:00 Glucose (Glutose) 15 gm Q15M PRN BUCCAL DECREASED GLUCOSE; Start 03/14/17 at 17 :00 Hydralazine HCl 25 mg 25 mg BID PO ; Start 03/14/17 at 21:00 Cefepime HCl 50 ml @ 100 mls/hr Q12 IVPB ; Start 03/15/17 at 21:00 Vancomycin HCl/ Sodium Chloride (Vancocin/NS) 250 ml @ 83.333 mls/ hr Q12H IVPB ; Start 03/15/17 at 13:00 GABRIEL GILMORE MD Mar 15, 2017 11:14
[2017-03-15] MEDS: ASPIRIN 325 MG TAB PO SCH (11:40)
--- NOTE | 2017-03-15 12:37 | CONS ---
Date/Time of Note Date/Time of Note DATE: 03/15/17 TIME: 12:34 Consult Date/Type/Reason Admit Date/Time Mar 14, 2017 at 12:11 Initial Consult Date Type of Consultation: Pulm/CCM Subjective Remains on BiPAP Objective Vital Signs Date Time Temp Pulse Resp B/P Pulse Ox O2 Delivery O2 Flow Rate FiO2 03/15/17 12:00 98.5 97 26 117/61 91 BIPAP 03/15/17 06:33 50 03/14/17 12:13 8.0 Intake and Output 03/14/17 03/14/17 03/15/17 15:00 23:00 07:00 Output Total 300 ml Balance -300 ml Exam NECK: Supple. No JVD or lymphadenopathy. CARDIAC: S1, S2, no added sounds or murmurs. CHEST: Diminished air entry. ABDOMEN: Obese, nontender. No guarding or rebound. EXTREMITIES: ++ edema Results/Medications Result Diagram: 03/15/17 0735 03/15/17 0735 Results 24 hrs Laboratory Tests Test 03/14/17 18:04 03/14/17 20:56 03/15/17 00:30 03/15/17 06:16 Creatine Kinase 41 32 Creatine Kinase Index 4.2 3.8 Creatinine Kinase MB (Mass) 1.72 1.20 Troponin I < 0.012 < 0.012 Bedside Glucose 158 165 Test 03/15/17 07:00 03/15/17 07:35 03/15/17 08:00 03/15/17 09:06 Blood Gas Specimen Source Blood arterial Blood arterial Arterial Blood Date Drawn 03/15/2017 8:30:45 AM 03/14/2017 8:40:31 PM Arterial Blood pH (Temp corrected) 7.270 *L 7.255 *L Arterial Blood pCO2 (Temp correct) 64.9 H 67.0 H Arterial Blood pO2 (Temp corrected) 80.1 75.4 L Arterial Blood HCO3 29.1 H 29.1 H Arterial Blood Base Excess 1.0 0.7 Arterial Blood Oxygen Saturation 95.3 95.6 Wesley Test ACCEPTAB ACCEPTAB Arterial Blood Gas Puncture Site Right Radial Left Radial Arterial Blood Carboxyhemoglobin 0.3 0.3 Arterial Blood Methemoglobin 0.5 0.3 Blood Gas A-a O2 Differential 203.4 H 205.7 H Oxyhemoglobin Percent 94.5 95.0 Total Hemoglobin 11.3 L 11.4 L Blood Gas Temperature 37.0 37.0 Blood Gas Respiration Rate 22.0 20.0 Blood Gas Actual Respiration Rate 22 32 Blood Gas Modality MASK - BIPAP MASK - BIPAP FiO2 50.0 50.0 Blood Gas IPAP/EPAP Ratio 27/12 27/12 Blood Gas Critical Value Read Back E SARAH HUBBARD MD Blood Gas Notified Whom DT JANETH Blood Gas Notified Time 03/15/2017 8:49:21 AM 03/14/2017 8:51:34 PM White Blood Count 13.4 #H Red Blood Count 3.49 L Hemoglobin 10.0 L Hematocrit 35.2 L Mean Corpuscular Volume 100.9 Mean Corpuscular Hemoglobin 28.7 L Mean Corpuscular Hemoglobin Concent 28.4 L Red Cell Distribution Width 15.1 H Platelet Count 288 Mean Platelet Volume 10.5 H Neutrophils % 88.8 H Lymphocytes % 6.1 L Monocytes % 2.5 Eosinophils % 0.0 Basophils % 0.1 Nucleated Red Blood Cells % 0.5 H Neutrophils # 11.9 H Lymphocytes # 0.8 Monocytes # 0.3 Eosinophils # 0.0 Basophils # 0.0 Nucleated Red Blood Cells # 0.1 H Sodium Level 148 H Potassium Level 4.9 Chloride Level 110 Carbon Dioxide Level 33 H Anion Gap 10 Blood Urea Nitrogen 41 H Creatinine 1.07 #H Glucose Level 180 Calcium Level 8.7 Phosphorus Level 4.2 Magnesium Level 2.4 Creatine Kinase 25 Creatine Kinase Index 4.4 Creatinine Kinase MB (Mass) 1.09 Troponin I < 0.012 Albumin 3.1 L Triglycerides Level 185 H Cholesterol Level 99 L LDL Cholesterol, Calculated 42 HDL Cholesterol 20 L Cholesterol/HDL Ratio 4.9 Blood Gas Pressure Support 10 Bedside Glucose 182 Medications Current Medications Aspirin (Aspirin) 325 mg DAILY PO Last administered on 03/15/17 11:40; Admin Dose 325 MG; Start 03/15/17 at 09:00 Docusate Sodium (Colace) 100 mg Q12H PRN PO CONSTIPATION; Start 03/14/17 at 12: 30 Atorvastatin Calcium (Lipitor) 20 mg HS PO Last administered on 03/14/17 21:17 ; Admin Dose 20 MG; Start 03/14/17 at 21:00 Enoxaparin Sodium (Lovenox) 30 mg DAILY SC Last administered on 03/15/17 09:15 ; Admin Dose 30 MG; Start 03/15/17 at 09:00 Ondansetron HCl (Zofran Inj) 4 mg Q6H PRN IV NAUSEA AND/OR VOMITING; Start 03/14/17 at 13:00 Acetaminophen (Tylenol Tab) 650 mg Q6H PRN PO PAIN LEVEL 1-3 OR FEVER; Start 03/14/17 at 13:00 Magnesium Hydroxide (Milk Of Mag) 30 ml DAILY PRN PO CONSTIPATION; Start at 13:00 Famotidine (Pepcid Iv) 20 mg Q24H IV Last administered on 03/14/17 20:45; Admin Dose 20 MG; Start 03/14/17 at 21:00 Methylprednisolone Sodium Succinate 60 mg 60 mg Q6 IV Last administered on 03/15 12:06; Admin Dose 60 MG; Start 03/14/17 at 13:30 Cefepime HCl (Maxipime 2gm/50 ml (Pmx)) 50 ml @ 100 mls/hr Q24H IVPB ; Start 03/15/17 at 11:00; Stop 03/15/17 at 14:00 Diagnostic Test (Pha) (Accu-Chek) 1 ea 02 XX ; Start 03/15/17 at 02:00 Insulin Aspart (Novolog Insulin Pen) NOVOLOG *MODERATE* ALGORI... Q4 SC Last administered on 03/15/17 09:15; Admin Dose 2 UNIT; Start 03/14/17 at 17:00 Miscellaneous Information 1 ea NOTE XX ; Start 03/14/17 at 17:00 Glucose (Glutose) 15 gm Q15M PRN PO DECREASED GLUCOSE; Start 03/14/17 at 17:00 Glucose (Glutose) 22.5 gm Q15M PRN PO DECREASED GLUCOSE; Start 03/14/17 at 17: 00 Dextrose (D50w Syringe) 25 ml Q15M PRN IV DECREASED GLUCOSE; Start 03/14/17 at 17:00 Dextrose (D50w Syringe) 50 ml Q15M PRN IV DECREASED GLUCOSE; Start 03/14/17 at 17:00 Glucagon (Glucagen) 1 mg Q15M PRN IM DECREASED GLUCOSE; Start 03/14/17 at 17:00 Glucose (Glutose) 15 gm Q15M PRN BUCCAL DECREASED GLUCOSE; Start 03/14/17 at 17 :00 Hydralazine HCl 25 mg 25 mg BID PO Last administered on 03/15/17t 11:41; Admin Dose 25 MG; Start 03/14/17 at 21:00 Cefepime HCl 50 ml @ 100 mls/hr Q12 IVPB ; Start 03/15/17 at 21:00 Vancomycin HCl/ Sodium Chloride (Vancocin/NS) 250 ml @ 83.333 mls/ hr Q12H IVPB ; Start 03/15/17 at 13:00 Assessment/Plan Additional Assessment/Plan IMP: 1. Acute on chronic Hypoxemic and hypercapnic respiratory failure. 2. CHF. 3. Multifocal pneumonia. 4. EDWIN . 5. Likely [facility] RECS: 1. Continue BiPAP 2. Continue broad-spectrum antibiotics. 3. Taper solumedrol 4. Bronchodilators 5. DVT prophylaxis 6. Am ABG 35 min cc time DARCY KOHLER MD Mar 15, 2017 12:37
[2017-03-15] MEDS: VANCOMYCIN 1.25 GM in SOD CHLORIDE 0.9% 250 ML IVPB SCH (13:06)
--- NOTE | 2017-03-15 14:38 | CONS ---
Date/Time of Note Date/Time of Note DATE: 03/15/17 TIME: 14:34 Assessment/Plan Assessment/Plan Additional Assessment/Plan Hypoxic respiartory failure Congestive heart failure exacerbation Dyslipidemia. Hypertension Chronic obstructive pulmonary disease. Diabetes mellitus. Obesity. Renal failure. Anemia. MARY LOU She continue to be on Bipap Continue Diuresis with Lasix Continue Hydralazine Continue Antibiotics Continue Lipitor Continue Insulin Continue Bipap Continue Methylprednisone Continue GI and DVT Prophylaxis ABG AM Consultation Date/Type/Reason Admit Date/Time Mar 14, 2017 at 12:11 Respiratory: cough, shortness of breath, No wheezing Cardiovascular: edema, No chest pain Psychological: confusion Past Medical History Medical History: congestive heart failure, diabetes, high cholesterol, hypertension Past Surgical History Past Surgical Hx: no surgical history Social History Alcohol Use: none Smoking Status: Never smoker Drug Use: none Exam/Review of Systems Vital Signs Vitals Vital Signs Date Time Temp Pulse Resp B/P Pulse Ox O2 Delivery O2 Flow Rate FiO2 03/15/17 12:00 102 03/15/17 12:00 98.5 26 117/61 91 BIPAP 03/15/17 06:33 50 03/14/17 12:13 8.0 Intake and Output 03/14/17 03/14/17 03/15/17 15:00 23:00 07:00 Output Total 300 ml Balance -300 ml Exam On Bipap Psych: no complaints Head: atraumatic, normocephalic Respiratory: diminished breath sounds Cardiovascular: regular rate and rhythm Gastrointestinal: nl liver, spleen, non-tender, soft Extremities: normal pulses Results Result Diagram: 03/15/17 0735 03/15/17 0735 Results 24 hrs Laboratory Tests Test 03/14/17 18:04 03/14/17 20:56 03/15/17 00:30 03/15/17 06:16 Creatine Kinase 41 32 Creatine Kinase Index 4.2 3.8 Creatinine Kinase MB (Mass) 1.72 1.20 Troponin I < 0.012 < 0.012 Bedside Glucose 158 165 Test 03/15/17 07:00 03/15/17 07:35 03/15/17 08:00 03/15/17 09:06 Blood Gas Specimen Source Blood arterial Blood arterial Arterial Blood Date Drawn 03/15/2017 8:30:45 AM 03/14/2017 8:40:31 PM Arterial Blood pH (Temp corrected) 7.270 *L 7.255 *L Arterial Blood pCO2 (Temp correct) 64.9 H 67.0 H Arterial Blood pO2 (Temp corrected) 80.1 75.4 L Arterial Blood HCO3 29.1 H 29.1 H Arterial Blood Base Excess 1.0 0.7 Arterial Blood Oxygen Saturation 95.3 95.6 Wesley Test ACCEPTAB ACCEPTAB Arterial Blood Gas Puncture Site Right Radial Left Radial Arterial Blood Carboxyhemoglobin 0.3 0.3 Arterial Blood Methemoglobin 0.5 0.3 Blood Gas A-a O2 Differential 203.4 H 205.7 H Oxyhemoglobin Percent 94.5 95.0 Total Hemoglobin 11.3 L 11.4 L Blood Gas Temperature 37.0 37.0 Blood Gas Respiration Rate 22.0 20.0 Blood Gas Actual Respiration Rate 22 32 Blood Gas Modality MASK - BIPAP MASK - BIPAP FiO2 50.0 50.0 Blood Gas IPAP/EPAP Ratio 18/8 18/8 Blood Gas Critical Value Read Back E SARAH HUBBARD MD Blood Gas Notified Whom DT JANETH Blood Gas Notified Time 03/15/2017 8:49:21 AM 03/14/2017 8:51:34 PM White Blood Count 13.4 #H Red Blood Count 3.49 L Hemoglobin 10.0 L Hematocrit 35.2 L Mean Corpuscular Volume 100.9 Mean Corpuscular Hemoglobin 28.7 L Mean Corpuscular Hemoglobin Concent 28.4 L Red Cell Distribution Width 15.1 H Platelet Count 288 Mean Platelet Volume 10.5 H Neutrophils % 88.8 H Lymphocytes % 6.1 L Monocytes % 2.5 Eosinophils % 0.0 Basophils % 0.1 Nucleated Red Blood Cells % 0.5 H Neutrophils # 11.9 H Lymphocytes # 0.8 Monocytes # 0.3 Eosinophils # 0.0 Basophils # 0.0 Nucleated Red Blood Cells # 0.1 H Sodium Level 148 H Potassium Level 4.9 Chloride Level 110 Carbon Dioxide Level 33 H Anion Gap 10 Blood Urea Nitrogen 41 H Creatinine 1.07 #H Glucose Level 180 Calcium Level 8.7 Phosphorus Level 4.2 Magnesium Level 2.4 Creatine Kinase 25 Creatine Kinase Index 4.4 Creatinine Kinase MB (Mass) 1.09 Troponin I < 0.012 Albumin 3.1 L Triglycerides Level 185 H Cholesterol Level 99 L LDL Cholesterol, Calculated 42 HDL Cholesterol 20 L Cholesterol/HDL Ratio 4.9 Blood Gas Pressure Support 10 Bedside Glucose 182 Test 03/15/17 12:00 03/15/17 12:20 03/15/17 13:15 Blood Gas Specimen Source Blood arterial Arterial Blood Date Drawn 03/15/2017 1:00:00 PM Arterial Blood pH (Temp corrected) 7.283 *L Arterial Blood pCO2 (Temp correct) 66.8 H Arterial Blood pO2 (Temp corrected) 91.0 Arterial Blood HCO3 30.9 H Arterial Blood Base Excess 2.6 Arterial Blood Oxygen Saturation 96.8 Wesley Test ACCEPTAB Arterial Blood Gas Puncture Site Right Radial Arterial Blood Carboxyhemoglobin 0.3 Arterial Blood Methemoglobin 0.3 Blood Gas A-a O2 Differential 190.4 H Oxyhemoglobin Percent 96.2 Total Hemoglobin 12.2 Blood Gas Temperature 37.0 Blood Gas Respiration Rate 18.0 Blood Gas Actual Respiration Rate 18 Blood Gas Modality MASK - BIPAP FiO2 50.0 Blood Gas Pressure Support 10 Blood Gas IPAP/EPAP Ratio 18/8 Blood Gas Critical Value Read Back MARIA C RODRIGUEZ M.D. Blood Gas Notified Whom RT Blood Gas Notified Time 03/15/2017 1:06:11 PM Iron Level 47 Total Iron Binding Capacity 227 L Percent Iron Saturation 21 L Bedside Glucose 171 Medications Medications Current Medications Aspirin (Aspirin) 325 mg DAILY PO Last administered on 03/15/17 11:40; Admin Dose 325 MG; Start 03/15/17 at 09:00 Docusate Sodium (Colace) 100 mg Q12H PRN PO CONSTIPATION; Start 03/14/17 at 12: 30 Atorvastatin Calcium (Lipitor) 20 mg HS PO Last administered on 03/14/17 21:17 ; Admin Dose 20 MG; Start 03/14/17 at 21:00 Enoxaparin Sodium (Lovenox) 30 mg DAILY SC Last administered on 03/15/17 09:15 ; Admin Dose 30 MG; Start 03/15/17 at 09:00 Ondansetron HCl (Zofran Inj) 4 mg Q6H PRN IV NAUSEA AND/OR VOMITING; Start 03/14/17 at 13:00 Acetaminophen (Tylenol Tab) 650 mg Q6H PRN PO PAIN LEVEL 1-3 OR FEVER; Start 03/14/17 at 13:00 Magnesium Hydroxide (Milk Of Mag) 30 ml DAILY PRN PO CONSTIPATION; Start at 13:00 Famotidine (Pepcid Iv) 20 mg Q24H IV Last administered on 03/14/17 20:45; Admin Dose 20 MG; Start 03/14/17 at 21:00 Diagnostic Test (Pha) (Accu-Chek) 1 ea 02 XX ; Start 03/15/17 at 02:00 Insulin Aspart (Novolog Insulin Pen) NOVOLOG *MODERATE* ALGORI... Q4 SC Last administered on 03/15/17 13:17; Admin Dose 2 UNIT; Start 03/14/17 at 17:00 Miscellaneous Information 1 ea NOTE XX ; Start 03/14/17 at 17:00 Glucose (Glutose) 15 gm Q15M PRN PO DECREASED GLUCOSE; Start 03/14/17 at 17:00 Glucose (Glutose) 22.5 gm Q15M PRN PO DECREASED GLUCOSE; Start 03/14/17 at 17: 00 Dextrose (D50w Syringe) 25 ml Q15M PRN IV DECREASED GLUCOSE; Start 03/14/17 at 17:00 Dextrose (D50w Syringe) 50 ml Q15M PRN IV DECREASED GLUCOSE; Start 03/14/17 at 17:00 Glucagon (Glucagen) 1 mg Q15M PRN IM DECREASED GLUCOSE; Start 03/14/17 at 17:00 Glucose (Glutose) 15 gm Q15M PRN BUCCAL DECREASED GLUCOSE; Start 03/14/17 at 17 :00 Hydralazine HCl 25 mg 25 mg BID PO Last administered on 03/15/17 11:41; Admin Dose 25 MG; Start 03/14/17 at 21:00 Cefepime HCl 50 ml @ 100 mls/hr Q12 IVPB ; Start 03/15/17 at 21:00 Vancomycin HCl/ Sodium Chloride (Vancocin/NS) 250 ml @ 83.333 mls/ hr Q12H IVPB Last administered on 03/15/17 13:06; Admin Dose 83.333 MLS/HR; Start 03/15/17 at 13:00 Methylprednisolone Sodium Succinate (Solu-Medrol) 60 mg BID IV ; Start 03/15/17 at 21:00 MARTHA LAW M.D. Mar 15, 2017 14:38
[2017-03-15] MEDS: CEFEPIME 2GM/50 ML (PMX) 50 ML IVPB SCH (20:50)
[2017-03-15] MEDS: FAMOTIDINE 20 MG INJ IV SCH (20:50)
[2017-03-15] MEDS: ATORVASTATIN 20 MG TAB PO SCH (20:51)
[2017-03-15] MEDS ORDERED: DIPHENHYDRAMINE 50 MG INJ IV ONE (22:30)
[2017-03-16] VITALS (23 sets, daily range): BP systolic 103–158; BP diastolic 50–87; PULSE 73–100; RESP 22–28
[2017-03-16] MEDS: VANCOMYCIN 1.25 GM in SOD CHLORIDE 0.9% 250 ML IVPB SCH ×2 (00:52→13:10)
[2017-03-16] MEDS: ALBUTEROL/IPRATROPIUM (NEB) 3 ML AMP HHN SCH ×5 (01:00→17:00)
[2017-03-16] MEDS: INSULIN ASPART [NOVOLOG] 3 ML PEN SC SCH ×3 (01:03→08:39)
[2017-03-16] MEDS: ACCU-CHEK XX SCH (01:04)
[2017-03-16] MEDS: FUROSEMIDE 100 MG INJ IV SCH (05:38)
[2017-03-16] MEDS: CEFEPIME 2GM/50 ML (PMX) 50 ML IVPB SCH (08:37)
[2017-03-16] MEDS: METHYLPREDNISOLONE 125 MG INJ IV SCH (08:37)
[2017-03-16] MEDS: ASPIRIN 325 MG TAB PO SCH (08:38)
[2017-03-16] MEDS: ENOXAPARIN 30 MG/0.3 ML SYG SC SCH (08:39)
--- NOTE | 2017-03-16 09:32 | PDOCDIS ---
Discharge Instructions DIAGNOSIS Discharge Diagnosis 1. Acute hypoxic respiratory failure secondary to pneumonia- improving 2. Severe sepsis secondary to Pneumonia-improving 3. Acute on chronic diastolic heart failure 4. EDWIN -resolved 5. Anemia 6. Diabetes Mellitus 7. HTN 8. COPD CONDITION Patient Condition: Fair HOME CARE INSTRUCTIONS: Special Diet: Diabetic FOLLOW UP/APPOINTMENTS Follow-up Plan Continue care at [facility] [place] GABRIEL GILMORE MD Mar 16, 2017 09:32
--- NOTE | 2017-03-16 09:32 | PN ---
Date/Time of Note Date/Time of Note DATE: 03/16/17 TIME: 09:32 Assessment/Plan VTE Prophylaxis VTE Prophylaxis Intervention: LMWH Lines/Catheters IV [facility] Type [facility] Peripheral IV Urinary Cath still in place: No Reason Cath still needed: other (indicate) Assessment/Plan Assessment/Plan 1. Acute hypoxic respiratory failure secondary to pneumonia- improving - Patient has been doing well on NC and saturating >90% on 3L - ABG this am shows improvement as well, 7.397/49/76 - Pulmonology on board and consultation appreciated - CXR showed RUL, RML, and LLL PNA. - Continue on Vanc and Cefepime. WBC improving and remains afebrile - continue bronchodilators and steroid taper 2. Severe sepsis secondary to Pneumonia-improving - Patient afebrile with improving WBC - Lactic acid normal - On Vancomycin and Cefepime - Steroids started and neb treatments 3. Acute on chronic diastolic heart failure - BNP 1250 - ECHO shows EF 60% - Lasix IV - Cardiology consultation appreciated 4. EDWIN -resolved - Continue monitoring 5. Anemia of chronic disease - Iron levels 47 - no acute bleeding appreciated 6. Diabetes Mellitus - A1c 6.6 - Hold home metformin - accuchecks and ISS 7. HTN - stable - continue monitoring 8. COPD - Nebs and steroids on board 9. Disposition - Patients respiratory status has improved and tolerating NC with saturations 90 %. Patient is stable for discharge to [facility] floor >35 minutes of critical care time was spent with patient at bedside Subjective 24 Hr Interval Summary Free Text/Dictation Patient saturating well, 94% on 3L NC. She is more awake this am and explained why she was brought to the hospital. She is concerned about getting insulin shots and requesting her Metformin and complaints of thirst. No acute overnight events. Exam/Review of Systems Vital Signs Vitals Vital Signs Date Time Temp Pulse Resp B/P Pulse Ox O2 Delivery O2 Flow Rate FiO2 03/16/17 09:00 84 22 114/56 92 Nasal Cannula 5.0 03/16/17 07:58 98.8 03/16/17 07:03 35 Intake and Output 03/15/17 03/15/17 03/16/17 15:00 23:00 07:00 Intake Total 50 ml 300 ml 250 ml Output Total 800 ml 1025 ml 1375 ml Balance -750 ml -725 ml -1125 ml Exam General: no acute distress on NC. Awake and oriented to hospital and self HEENT: NC/AT. PERRL. EOM I Lungs: Wet cough, slight expiratory wheezing, diminished lung sounds, improving rhonchi right lobe and left lower lobe CVS: Regular rate and rhythm, no murmurs appreciated GI: soft, NT, ND. +BS. no rebound or guarding Ext:: bilateral lower extremity edema, no cyanosis or ecchymosis Skin: erythema shins bilaterally Results Result Diagram: 03/16/17 0453 03/16/17 0453 Results 24 hrs Laboratory Tests Test 03/15/17 12:00 03/15/17 12:20 03/15/17 13:15 03/15/17 17:27 Blood Gas Specimen Source Blood arterial Arterial Blood Date Drawn 03/15/2017 1:00:00 PM Arterial Blood pH (Temp corrected) 7.283 *L Arterial Blood pCO2 (Temp correct) 66.8 H Arterial Blood pO2 (Temp corrected) 91.0 Arterial Blood HCO3 30.9 H Arterial Blood Base Excess 2.6 Arterial Blood Oxygen Saturation 96.8 Wesley Test ACCEPTAB Arterial Blood Gas Puncture Site Right Radial Arterial Blood Carboxyhemoglobin 0.3 Arterial Blood Methemoglobin 0.3 Blood Gas A-a O2 Differential 190.4 H Oxyhemoglobin Percent 96.2 Total Hemoglobin 12.2 Blood Gas Temperature 37.0 Blood Gas Respiration Rate 18.0 Blood Gas Actual Respiration Rate 18 Blood Gas Modality MASK - BIPAP FiO2 50.0 Blood Gas Pressure Support 10 Blood Gas IPAP/EPAP Ratio 18/8 Blood Gas Critical Value Read Back MARIA C RODRIGUEZ M.D. Blood Gas Notified Whom RT Blood Gas Notified Time 03/15/2017 1:06:11 PM Iron Level 47 Total Iron Binding Capacity 227 L Percent Iron Saturation 21 L Bedside Glucose 171 174 Test 03/16/17 00:56 03/16/17 04:50 03/16/17 04:53 03/16/17 05:00 Bedside Glucose 187 206 White Blood Count 14.1 H Red Blood Count 3.36 L Hemoglobin 9.8 L Hematocrit 33.2 L Mean Corpuscular Volume 98.8 Mean Corpuscular Hemoglobin 29.2 Mean Corpuscular Hemoglobin Concent 29.5 L Red Cell Distribution Width 14.9 H Platelet Count 288 Mean Platelet Volume 10.6 H Neutrophils % 84.0 H Lymphocytes % 5.0 L Monocytes % 5.7 Eosinophils % 0.0 Basophils % 0.4 Nucleated Red Blood Cells % 0.6 H Neutrophils # 11.8 H Lymphocytes # 0.7 L Monocytes # 0.8 Eosinophils # 0.0 Basophils # 0.1 Nucleated Red Blood Cells # 0.1 H Sodium Level 152 H Potassium Level 4.6 Chloride Level 111 H Carbon Dioxide Level 32 H Anion Gap 14 Blood Urea Nitrogen 45 H Creatinine 0.85 Glucose Level 208 Lactic Acid Level 1.0 Calcium Level 8.8 Phosphorus Level 3.3 Magnesium Level 2.2 Albumin 2.9 L Blood Gas Specimen Source Blood arterial Arterial Blood Date Drawn 03/16/2017 5:00:41 AM Arterial Blood pH (Temp corrected) 7.397 Arterial Blood pCO2 (Temp correct) 49.2 H Arterial Blood pO2 (Temp corrected) 76.8 L Arterial Blood HCO3 29.6 H Arterial Blood Base Excess 4.2 H Arterial Blood Oxygen Saturation 94.6 L Wesley Test ACCEPTAB Arterial Blood Gas Puncture Site Right Radial Arterial Blood Carboxyhemoglobin 0.3 Arterial Blood Methemoglobin 0.5 Blood Gas A-a O2 Differential 115.6 H Oxyhemoglobin Percent 93.8 Total Hemoglobin 8.7 L Blood Gas Temperature 37.0 Blood Gas Respiration Rate 22.0 Blood Gas Actual Respiration Rate 23 Blood Gas Modality MASK - BIPAP FiO2 35.0 Blood Gas IPAP/EPAP Ratio 18/8 Blood Gas Notified Whom MH Blood Gas Notified Time 03/16/2017 5:27:32 AM Test 03/16/17 08:37 Bedside Glucose 177 Medications Medications Current Medications Aspirin (Aspirin) 325 mg DAILY PO Last administered on 03/16/17 08:38; Admin Dose 325 MG; Start 03/15/17 at 09:00 Docusate Sodium (Colace) 100 mg Q12H PRN PO CONSTIPATION; Start 03/14/17 at 12: 30 Atorvastatin Calcium (Lipitor) 20 mg HS PO Last administered on 03/15/17 20:51 ; Admin Dose 20 MG; Start 03/14/17 at 21:00 Enoxaparin Sodium (Lovenox) 30 mg DAILY SC Last administered on 03/16/17 08:39 ; Admin Dose 30 MG; Start 03/15/17 at 09:00 Ondansetron HCl (Zofran Inj) 4 mg Q6H PRN IV NAUSEA AND/OR VOMITING; Start 03/14/17 at 13:00 Acetaminophen (Tylenol Tab) 650 mg Q6H PRN PO PAIN LEVEL 1-3 OR FEVER; Start 03/14/17 at 13:00 Magnesium Hydroxide (Milk Of Mag) 30 ml DAILY PRN PO CONSTIPATION; Start at 13:00 Famotidine (Pepcid Iv) 20 mg Q24H IV Last administered on 03/15/17 20:50; Admin Dose 20 MG; Start 03/14/17 at 21:00 Diagnostic Test (Pha) (Accu-Chek) 1 ea 02 XX ; Start 03/15/17 at 02:00 Insulin Aspart (Novolog Insulin Pen) NOVOLOG *MODERATE* ALGORI... Q4 SC Last administered on 03/16/17 08:39; Admin Dose 2 UNIT; Start 03/14/17 at 17:00 Miscellaneous Information 1 ea NOTE XX ; Start 03/14/17 at 17:00 Glucose (Glutose) 15 gm Q15M PRN PO DECREASED GLUCOSE; Start 03/14/17 at 17:00 Glucose (Glutose) 22.5 gm Q15M PRN PO DECREASED GLUCOSE; Start 03/14/17 at 17: 00 Dextrose (D50w Syringe) 25 ml Q15M PRN IV DECREASED GLUCOSE; Start 03/14/17 at 17:00 Dextrose (D50w Syringe) 50 ml Q15M PRN IV DECREASED GLUCOSE; Start 03/14/17 at 17:00 Glucagon (Glucagen) 1 mg Q15M PRN IM DECREASED GLUCOSE; Start 03/14/17 at 17:00 Glucose (Glutose) 15 gm Q15M PRN BUCCAL DECREASED GLUCOSE; Start 03/14/17 at 17 :00 Hydralazine HCl 25 mg 25 mg BID PO Last administered on 03/15/17 20:52; Admin Dose 25 MG; Start 03/14/17 at 21:00 Cefepime HCl 50 ml @ 100 mls/hr Q12 IVPB Last administered on 03/16/17 08:37 ; Admin Dose 100 MLS/HR; Start 03/15/17 at 21:00 Vancomycin HCl/ Sodium Chloride (Vancocin/NS) 250 ml @ 83.333 mls/ hr Q12H IVPB Last administered on 03/16/17 00:52; Admin Dose 83.333 MLS/HR; Start 03/15/17 at 13:00 Methylprednisolone Sodium Succinate (Solu-Medrol) 60 mg BID IV Last administered on 03/16/17 08:37; Admin Dose 60 MG; Start 03/15/17 at 21:00 GABRIEL GILMORE MD Mar 16, 2017 09:32
--- NOTE | 2017-03-16 09:32 | PDOCDIS ---
Discharge Instructions DIAGNOSIS Discharge Diagnosis 1. Acute hypoxic respiratory failure secondary to pneumonia- improving 2. Severe sepsis secondary to Pneumonia-improving 3. Acute on chronic diastolic heart failure 4. EDWIN -resolved 5. Anemia 6. Diabetes Mellitus 7. HTN 8. COPD CONDITION Patient Condition: Fair HOME CARE INSTRUCTIONS: Special Diet: Diabetic FOLLOW UP/APPOINTMENTS Follow-up Plan Continue care at [place] GABRIEL GILMORE MD Mar 16, 2017 09:32
--- NOTE | 2017-03-16 09:44 | DS ---
Date/Time of Note Date/Time of Note DATE: 03/16/17 TIME: 09:32 Discharge Summary Admission/Discharge Info Admit Date/Time Mar 14, 2017 at 12:11 Discharge Date/Time Discharge Diagnosis 1. Acute hypoxic respiratory failure secondary to pneumonia- improving 2. Severe sepsis secondary to Pneumonia 3. Acute on chronic diastolic heart failure 4. DEWIN -resolved 5. Anemia of chronic disease 6. Diabetes Mellitus 7. HTN 8. COPD 9. Hypernatremia Patient Condition: Fair Consults Pulmonology Cardiology Procedures PROCEDURE: Renal US. CLINICAL INDICATION: Renal insufficiency TECHNIQUE: Multiple sonographic images of the kidneys were obtained. COMPARISON: No prior studies are available for comparison. FINDINGS: The kidneys are well visualized. The right kidney measures 11.8 cm. The left kidney measures 13.0 cm. Normal renal cortical echogenicity. No evidence of shadowing renal calculi. No hydronephrosis. Normal appearance of the urinary bladder. IMPRESSION: Normal renal ultrasound. PROCEDURE: XR Chest. CLINICAL INDICATION: Chest pain TECHNIQUE: Single frontal view of the chest was obtained COMPARISON: CR CHEST 05/10/2015 FINDINGS: The heart is enlarged. The thoracic aorta is calcified. There are right upper lobe, right lower lobe and left lower lobe infiltrates. There is no pleural effusion or pneumothorax. RPTAT: AA IMPRESSION: Patchy right upper lobe, right lower lobe and left lower lobe infiltrates. Mild cardiomegaly. Calcified aorta consistent with atherosclerotic disease. Echocardiogram Report Procedures: Transthoracic echocardiogram with complete 2D, M-Mode, and doppler examination. Indications: Shortness of breath. 2D/M Mode Doppler Measurement Value Normal Ranges Measurement Value Normal Ranges LVIDd 2D 4.2 3.5 - 5.6 cm AV Peak [place] 1.7 m/sec LVIDs 2D 2.5 2.1 - 4.1 cm AV Peak PG 11.8 mmHg LVPWd 2D 1.0 0.6 - 1.1 cm LVOT Peak [place] 1.1 m/sec IVSd 2D 1.1 0.6 - 1.1 cm LVOT Peak PG 4.7 mmHg AoR Diam 2D 2.7 2.0 - 3.7 cm MV E Peak [place]ans[place] 1.0 m/sec EDV 2D 77.0 cm3 MV A Peak [place] 0.8 m/sec ESV 2D 16.0 cm3 MV E/A 1.3 LA Dimen 2D 2.9 2.3 - 4.0 cm MV Decel Time 158 msec MV Decel [place] 6 MV E/A 1.3 TR Peak Frans[place] 2.9 m/sec TR Peak PG 33.2 mmHg RVSP 48.0 mmHg Findings Left Ventricle: Normal left ventricular systolic function. Normal left ventricular cavity size. Mild concentric left ventricular hypertrophy. Ejection fraction is visually estimated at 6065 %. Right Ventricle: Normal right ventricular size. Normal right ventricular systolic function. Left Atrium: The left atrium is normal in size. Right Atrium: The right atrium is normal in size. Mitral Valve: Mitral valve leaflets appear mildly thickened. Mild mitral annular calcification. Trace mitral regurgitation. Aortic Valve: No significant aortic stenosis or insufficiency. Aortic cusps appear mildly calcified. Tricuspid Valve: Normal appearance of the tricuspid valve. Estimated peak PA systolic pressure 48 mmHg. There is mild tricuspid regurgitation. Pulmonic Valve: Pulmonic valve not well visualized. Pericardium: Normal pericardium with no significant pericardial effusion. Aorta: Normal aortic root. IVC: Dilated IVC without respiratory collapse, however, patient on bipap. Conclusions 1. Normal left ventricular systolic function. Normal left ventricular cavity size. Mild concentric left ventricular hypertrophy. Ejection fraction is visually estimated at 60-65 %. 2. Mitral valve leaflets appear mildly thickened. Mild mitral annular calcification. Trace mitral regurgitation. 3. Normal appearance of the tricuspid valve. Estimated peak PA systolic pressure 48 mmHg. There is mild tricuspid regurgitation. Hx of Present Illness 66 yo F with PMH DM, obesity, COPD, HTN, and CHF presented to ED from home. Per EMS patient was told by family she has not been caring for herself and was found to be saturating in the 70%. Patient was altered and unable to obtain history. Patient was just grunting when asked name and location. History obtained from ED, past medical encounters, and EMS. Per ED physician, patient was brought in by ambulance and is a [facility] patient but was not stable to transfer due to desaturating while even on ventimask. During interview, patient was on ventimask, saturating 84%. Patient was last seen at [facility] in 2014 for similar issues. CXR performed showed patchy right upper lobe, right lower lobe and left lower lobe infiltrates. ABG performed showed pH 7.174, PCO2 81 and was started on BIPAP. She was also found to have mild cardiomegaly on CXR with BNP 1250. Constitutional: distress, No alert, No oriented Psych: confusion Head: atraumatic, normocephalic Eyes: nl conjunctiva, nl sclera ENMT: mucosa pink and moist Neck: supple Respiratory: crackles/rales, diminished breath sounds, labored breathing, other (regular rhythm, tachycardia), No wheezing Cardiovascular: edema, No murmurs/extra sounds, No systolic murmur Gastrointestinal: bowel sounds, non-tender, soft, No ascites, No distended, No rebound or guarding, No tender Musculoskeletal: nl extremities to inspection Extremities: edema, No clubbing, No cyanosis Neurological: confused, lethargic, No nl mental status Skin: No ecchymosis, No laceration Lymph: nl lymph nodes Labs Result Diagram: 03/14/17 0800 03/14/17 0800 Hospital Course Patient was admitted to ICU on BIPAP secondary to acute respiratory failure with hypoxia and hypercapnea secondary to pneumonia. CXR showed RUL, RML, and LLL PNA. Started on Vanc and Cefepime as well as steroids. Pulmonology was consulted and recommended to maintain patient on BIPAP and continue antibiotics and steroids with frequent ABGs. Patient also found to have acute on chronic diastolic heart failure with BNP 1250 as well and Cardiology consultation was placed. Patient was started on IV lasix and ECHO was ordered which showed EF 60 %. Patient was weaned off BIPAP after 24 hours to SD and was maintaining saturations in 94% on 3L. ABG in the am showed improvement, 7.397/49/76. Patient was mentating better with stable vitals and was stable for transfer to [facility] telemetry floor. Home Meds Active Scripts Levofloxacin* (Levaquin*) 500 Mg Tablet, 500 MG PO DAILY for 7 Days, TAB Prov:KERRIE RIOS MD 05/12/15 Ondansetron Hcl* (Zofran*) 2 Mg/Ml Soln, 4 MG IV Q6H Y for NAUSEA AND/OR VOMITING for 10 Days Prov:KERRIE RIOS MD 05/12/15 Potassium Chloride (Klor-Con M10) 10 Meq Tabsr, 10 MEQ PO DAILY for 10 Days Prov:KERRIE RIOS MD 05/12/15 Nystatin* (Nystop* Powder) 1 Applic Powder, 1 APPLIC TOP QID for 10 Days Prov:KERRIE RIOS MD 05/12/15 Methylprednisolone Sodium Succinate (Solu-Medrol) 125 Mg Soln, 60 MG IV Q6H for 7 Days Prov:KERRIE RIOS MD 05/12/15 Metformin Hcl (Glucophage) 500 Mg Tab, 1000 MG PO WITH BREAKFAST for 30 Days, TAB Prov:KERRIE RIOS MD 05/12/15 Ipratropium-Albuterol (Ipratropium-Albuterol) 3 Ml Nebu, 3 ML HHN Q4H RESP THERAPY for 10 Days Prov:KERRIE RIOS MD 05/12/15 Gabapentin* (Neurontin*) 300 Mg Cap, 300 MG PO DAILY for 30 Days, CAP Prov:KERRIE RIOS MD 05/12/15 Enoxaparin Sodium* (Enoxaparin Sodium*) 40 Mg/0.4 Ml Soln, 40 MG SC DAILY for 30 Days Prov:KERRIE RIOS MD 05/12/15 Docusate Sodium* (Colace*) 100 Mg Cap, 100 MG PO Q12H Y for CONSTIPATION for 30 Days, CAP Prov:KERRIE RIOS MD 05/12/15 Aspirin (Aspirin Lite-Coat) 325 Mg Tab, 325 MG PO DAILY for 30 Days, TAB Prov:KERRIE RIOS MD 05/12/15 Reported Medications Simvastatin (Simvastatin) 20 Mg Tablet 05/10/15 Follow-up Plan Continue care at [facility] Primary Care Provider Not On Staff Doctor Time spent on discharge: > 30 minutes Pending Labs Laboratory Tests Test 03/15/17 12:00 03/15/17 12:20 03/15/17 13:15 03/15/17 17:27 Blood Gas Specimen Source Blood arterial Arterial Blood Date Drawn 03/15/2017 1:00:00 PM Arterial Blood pH (Temp corrected) 7.283 (7.350-7.450) Arterial Blood pCO2 (Temp correct) 66.8mmhg (35-45) Arterial Blood pO2 (Temp corrected) 91.0mmHG (80-100.0) Arterial Blood HCO3 30.9mmol/L (22.0-26.0) Arterial Blood Base Excess 2.6mmol/L (-3.0-3) Arterial Blood Oxygen Saturation 96.8mmHG (95.0-98.0) Wesley Test ACCEPTAB Arterial Blood Gas Puncture Site Right Radial Arterial Blood Carboxyhemoglobin 0.3% (0.0-3.0) Arterial Blood Methemoglobin 0.3% (0.0-1.5) Blood Gas A-a O2 Differential 190.4mmHg (7.0-24.0) Oxyhemoglobin Percent 96.2% (93.0-99.0) Total Hemoglobin 12.2g/dl (12.0-18.0) Blood Gas Temperature 37.0C Blood Gas Respiration Rate 18.0 Blood Gas Actual Respiration Rate 18 Blood Gas Modality MASK - BIPAP FiO2 50.0% Blood Gas Pressure Support 10 Blood Gas IPAP/EPAP Ratio 18/8 Blood Gas Critical Value Read Back MARIA C RODRIGUEZ M.D. Blood Gas Notified Whom RT Blood Gas Notified Time 03/15/2017 1:06:11 PM Iron Level 47ug/dl (35-150) Total Iron Binding Capacity 227ug/dl (241-421) Percent Iron Saturation 21% SAT (22-52) Bedside Glucose 171mg/dL (70-220) 174mg/dL (70-220) Test 03/16/17 00:56 03/16/17 04:50 03/16/17 04:53 03/16/17 05:00 Bedside Glucose 187mg/dL (70-220) 206mg/dL (70-220) White Blood Count 14.110^3/ul (4.8-10.8) Red Blood Count 3.3610^6/ul (4.20-5.40) Hemoglobin 9.8g/dl (12.0-16.0) Hematocrit 33.2% (37.0-47.0) Mean Corpuscular Volume 98.8fl (82.0-101.0) Mean Corpuscular Hemoglobin 29.2pg (29.0-33.0) Mean Corpuscular Hemoglobin Concent 29.5g/dl (32.0-37.0) Red Cell Distribution Width 14.9% (11.5-14.5) Platelet Count 62406^3/UL (140-415) Mean Platelet Volume 10.6fl (7.4-10.4) Neutrophils % 84.0% (39.0-77.0) Lymphocytes % 5.0% (15.0-51.0) Monocytes % 5.7% (0.0-11.0) Eosinophils % 0.0% (0.0-7.0) Basophils % 0.4% (0.0-2.0) Nucleated Red Blood Cells % 0.6/100WBC (0.0-0.0) Neutrophils # 11.810^3/ul (1.6-7.5) Lymphocytes # 0.710^3/ul (0.8-2.9) Monocytes # 0.810^3/ul (0.3-0.9) Eosinophils # 0.010^3/ul (0.0-0.5) Basophils # 0.110^3/ul (0.0-0.1) Nucleated Red Blood Cells # 0.110^3/ul (0.0-0.0) Sodium Level 152mmol/L (135-144) Potassium Level 4.6mmol/L (3.5-5.1) Chloride Level 111mmol/L (97-110) Carbon Dioxide Level 32mmol/L (21-31) Anion Gap 14 (8-16) Blood Urea Nitrogen 45mg/dl (7-20) Creatinine 0.85mg/dl (0.44-1.00) Glucose Level 208mg/dl (70-220) Lactic Acid Level 1.0mmol/L (0.5-2.0) Calcium Level 8.8mg/dl (8.4-10.2) Phosphorus Level 3.3mg/dl (2.5-4.9) Magnesium Level 2.2mg/dl (1.7-2.5) Albumin 2.9g/dl (3.3-4.9) Blood Gas Specimen Source Blood arterial Arterial Blood Date Drawn 03/16/2017 5:00:41 AM Arterial Blood pH (Temp corrected) 7.397 (7.350-7.450) Arterial Blood pCO2 (Temp correct) 49.2mmhg (35-45) Arterial Blood pO2 (Temp corrected) 76.8mmHG (80-100.0) Arterial Blood HCO3 29.6mmol/L (22.0-26.0) Arterial Blood Base Excess 4.2mmol/L (-3.0-3) Arterial Blood Oxygen Saturation 94.6mmHG (95.0-98.0) Wesley Test ACCEPTAB Arterial Blood Gas Puncture Site Right Radial Arterial Blood Carboxyhemoglobin 0.3% (0.0-3.0) Arterial Blood Methemoglobin 0.5% (0.0-1.5) Blood Gas A-a O2 Differential 115.6mmHg (7.0-24.0) Oxyhemoglobin Percent 93.8% (93.0-99.0) Total Hemoglobin 8.7g/dl (12.0-18.0) Blood Gas Temperature 37.0C Blood Gas Respiration Rate 22.0 Blood Gas Actual Respiration Rate 23 Blood Gas Modality MASK - BIPAP FiO2 35.0% Blood Gas IPAP/EPAP Ratio 188 Blood Gas Notified Whom MH Blood Gas Notified Time 03/16/2017 5:27:32 AM Test 03/16/17 08:37 Bedside Glucose 177mg/dL (70-220) GABRIEL GILMORE MD Mar 16, 2017 09:44
[2017-03-16] MEDS ORDERED: INSULIN ASPART [NOVOLOG] 3 ML PEN SC SCH (11:19)
[2017-03-16] MEDS ORDERED: Insulin NOVOLOG SS MODERATE Algorithm (SS with meals and bedtime) SC SCH (11:30)
--- NOTE | 2017-03-16 12:17 | CONS ---
Date/Time of Note Date/Time of Note DATE: 03/16/17 TIME: 12:14 Assessment/Plan Assessment/Plan Additional Assessment/Plan Hypoxic respiratory failure Congestive heart failure exacerbation Chronic obstructive pulmonary disease. MARY LOU Obesity Diabetes mellitus. Dyslipidemia. Hypertension Renal failure. Anemia. Hemodynamically stable Continue Diuresis with Lasix Continue Hydralazine Continue Antibiotics Continue Lipitor Continue Insulin Continue Bipap prn Continue Methylprednisone Continue GI and DVT Prophylaxis Consultation Date/Type/Reason Admit Date/Time Mar 14, 2017 at 12:11 Initial Consult Date Type of Consultation: Pulm/CCM Exam/Review of Systems Vital Signs Vitals Vital Signs Date Time Temp Pulse Resp B/P Pulse Ox O2 Delivery O2 Flow Rate FiO2 03/16/17 11:00 87 28 137/63 93 Nasal Cannula 4.0 03/16/17 07:58 98.8 03/16/17 07:03 35 Intake and Output 03/15/17 03/15/17 03/16/17 15:00 23:00 07:00 Intake Total 50 ml 300 ml 250 ml Output Total 800 ml 1025 ml 1375 ml Balance -750 ml -725 ml -1125 ml Exam On Bipap Head: atraumatic, normocephalic Respiratory: diminished breath sounds Cardiovascular: regular rate and rhythm Gastrointestinal: nl liver, spleen, non-tender, soft Extremities: normal pulses Results Result Diagram: 03/16/17 0453 03/16/17 0453 Results 24 hrs Laboratory Tests Test 03/15/17 12:20 03/15/17 13:15 03/15/17 17:27 03/16/17 00:56 Iron Level 47 Total Iron Binding Capacity 227 L Percent Iron Saturation 21 L Bedside Glucose 171 174 187 Test 03/16/17 04:50 03/16/17 04:53 03/16/17 05:00 03/16/17 08:37 Bedside Glucose 206 177 White Blood Count 14.1 H Red Blood Count 3.36 L Hemoglobin 9.8 L Hematocrit 33.2 L Mean Corpuscular Volume 98.8 Mean Corpuscular Hemoglobin 29.2 Mean Corpuscular Hemoglobin Concent 29.5 L Red Cell Distribution Width 14.9 H Platelet Count 288 Mean Platelet Volume 10.6 H Neutrophils % 84.0 H Lymphocytes % 5.0 L Monocytes % 5.7 Eosinophils % 0.0 Basophils % 0.4 Nucleated Red Blood Cells % 0.6 H Neutrophils # 11.8 H Lymphocytes # 0.7 L Monocytes # 0.8 Eosinophils # 0.0 Basophils # 0.1 Nucleated Red Blood Cells # 0.1 H Sodium Level 152 H Potassium Level 4.6 Chloride Level 111 H Carbon Dioxide Level 32 H Anion Gap 14 Blood Urea Nitrogen 45 H Creatinine 0.85 Glucose Level 208 Lactic Acid Level 1.0 Calcium Level 8.8 Phosphorus Level 3.3 Magnesium Level 2.2 Albumin 2.9 L Blood Gas Specimen Source Blood arterial Arterial Blood Date Drawn 03/16/2017 5:00:41 AM Arterial Blood pH (Temp corrected) 7.397 Arterial Blood pCO2 (Temp correct) 49.2 H Arterial Blood pO2 (Temp corrected) 76.8 L Arterial Blood HCO3 29.6 H Arterial Blood Base Excess 4.2 H Arterial Blood Oxygen Saturation 94.6 L Wesley Test ACCEPTAB Arterial Blood Gas Puncture Site Right Radial Arterial Blood Carboxyhemoglobin 0.3 Arterial Blood Methemoglobin 0.5 Blood Gas A-a O2 Differential 115.6 H Oxyhemoglobin Percent 93.8 Total Hemoglobin 8.7 L Blood Gas Temperature 37.0 Blood Gas Respiration Rate 22.0 Blood Gas Actual Respiration Rate 23 Blood Gas Modality MASK - BIPAP FiO2 35.0 Blood Gas IPAP/EPAP Ratio 18/8 Blood Gas Notified Whom MH Blood Gas Notified Time 03/16/2017 5:27:32 AM Medications Medications Current Medications Aspirin (Aspirin) 325 mg DAILY PO Last administered on 03/16/17 08:38; Admin Dose 325 MG; Start 03/15/17 at 09:00 Docusate Sodium (Colace) 100 mg Q12H PRN PO CONSTIPATION; Start 03/14/17 at 12: 30 Atorvastatin Calcium (Lipitor) 20 mg HS PO Last administered on 03/15/17 20:51 ; Admin Dose 20 MG; Start 03/14/17 at 21:00 Enoxaparin Sodium (Lovenox) 30 mg DAILY SC Last administered on 03/16/17 08:39 ; Admin Dose 30 MG; Start 03/15/17 at 09:00 Ondansetron HCl (Zofran Inj) 4 mg Q6H PRN IV NAUSEA AND/OR VOMITING; Start 03/14/17 at 13:00 Acetaminophen (Tylenol Tab) 650 mg Q6H PRN PO PAIN LEVEL 1-3 OR FEVER; Start 03/14/17 at 13:00 Magnesium Hydroxide (Milk Of Mag) 30 ml DAILY PRN PO CONSTIPATION; Start at 13:00 Famotidine (Pepcid Iv) 20 mg Q24H IV Last administered on 03/15/17 20:50; Admin Dose 20 MG; Start 03/14/17 at 21:00 Diagnostic Test (Pha) (Accu-Chek) 1 ea 02 XX ; Start 03/15/17 at 02:00 Miscellaneous Information 1 ea NOTE XX ; Start 03/14/17 at 17:00 Glucose (Glutose) 15 gm Q15M PRN PO DECREASED GLUCOSE; Start 03/14/17 at 17:00 Glucose (Glutose) 22.5 gm Q15M PRN PO DECREASED GLUCOSE; Start 03/14/17 at 17: 00 Dextrose (D50w Syringe) 25 ml Q15M PRN IV DECREASED GLUCOSE; Start 03/14/17 at 17:00 Dextrose (D50w Syringe) 50 ml Q15M PRN IV DECREASED GLUCOSE; Start 03/14/17 at 17:00 Glucagon (Glucagen) 1 mg Q15M PRN IM DECREASED GLUCOSE; Start 03/14/17 at 17:00 Glucose (Glutose) 15 gm Q15M PRN BUCCAL DECREASED GLUCOSE; Start 03/14/17 at 17 :00 Hydralazine HCl 25 mg 25 mg BID PO Last administered on 03/15/17 20:52; Admin Dose 25 MG; Start 03/14/17 at 21:00 Cefepime HCl 50 ml @ 100 mls/hr Q12 IVPB Last administered on 03/16/17 08:37 ; Admin Dose 100 MLS/HR; Start 03/15/17 at 21:00 Vancomycin HCl/ Sodium Chloride (Vancocin/NS) 250 ml @ 83.333 mls/ hr Q12H IVPB Last administered on 03/16/17 00:52; Admin Dose 83.333 MLS/HR; Start 03/15/17 at 13:00 Methylprednisolone Sodium Succinate (Solu-Medrol) 60 mg BID IV Last administered on 03/16/17 08:37; Admin Dose 60 MG; Start 03/15/17 at 21:00 Miscellaneous Information (*Rx Drug Level Order Reminder*) VANCOMYCIN TROUGH AT 0000 ONCE ONCE XX ; Start 03/17/17 at 00:00; Stop 03/17/17 at 00:01 MARTHA LAW M.D. Mar 16, 2017 12:17
--- NOTE | 2017-03-16 12:42 | CONS ---
Date/Time of Note Date/Time of Note DATE: 03/16/17 TIME: 12:40 Consult Date/Type/Reason Admit Date/Time Mar 14, 2017 at 12:11 Type of Consultation: Pulm/CCM Subjective On and off BiPAP overnight. Now off. Objective Vital Signs Date Time Temp Pulse Resp B/P Pulse Ox O2 Delivery O2 Flow Rate FiO2 03/16/17 11:00 87 28 137/63 93 Nasal Cannula 4.0 03/16/17 07:58 98.8 03/16/17 07:03 35 Intake and Output 03/15/17 03/15/17 03/16/17 15:00 23:00 07:00 Intake Total 50 ml 300 ml 250 ml Output Total 800 ml 1025 ml 1375 ml Balance -750 ml -725 ml -1125 ml Exam NECK: Supple. No JVD or lymphadenopathy. CARDIAC: S1, S2, no added sounds or murmurs. CHEST: Diminished air entry and basilar rales ABDOMEN: Obese, nontender. No guarding or rebound. EXTREMITIES: ++ edema Results/Medications Result Diagram: 03/16/17 0453 03/16/17 0453 Results 24 hrs Laboratory Tests Test 03/15/17 13:15 03/15/17 17:27 03/16/17 00:56 03/16/17 04:50 Bedside Glucose 171 174 187 206 Test 03/16/17 04:53 03/16/17 05:00 03/16/17 08:37 White Blood Count 14.1 H Red Blood Count 3.36 L Hemoglobin 9.8 L Hematocrit 33.2 L Mean Corpuscular Volume 98.8 Mean Corpuscular Hemoglobin 29.2 Mean Corpuscular Hemoglobin Concent 29.5 L Red Cell Distribution Width 14.9 H Platelet Count 288 Mean Platelet Volume 10.6 H Neutrophils % 84.0 H Lymphocytes % 5.0 L Monocytes % 5.7 Eosinophils % 0.0 Basophils % 0.4 Nucleated Red Blood Cells % 0.6 H Neutrophils # 11.8 H Lymphocytes # 0.7 L Monocytes # 0.8 Eosinophils # 0.0 Basophils # 0.1 Nucleated Red Blood Cells # 0.1 H Sodium Level 152 H Potassium Level 4.6 Chloride Level 111 H Carbon Dioxide Level 32 H Anion Gap 14 Blood Urea Nitrogen 45 H Creatinine 0.85 Glucose Level 208 Lactic Acid Level 1.0 Calcium Level 8.8 Phosphorus Level 3.3 Magnesium Level 2.2 Albumin 2.9 L Blood Gas Specimen Source Blood arterial Arterial Blood Date Drawn 03/16/2017 5:00:41 AM Arterial Blood pH (Temp corrected) 7.397 Arterial Blood pCO2 (Temp correct) 49.2 H Arterial Blood pO2 (Temp corrected) 76.8 L Arterial Blood HCO3 29.6 H Arterial Blood Base Excess 4.2 H Arterial Blood Oxygen Saturation 94.6 L Wesley Test ACCEPTAB Arterial Blood Gas Puncture Site Right Radial Arterial Blood Carboxyhemoglobin 0.3 Arterial Blood Methemoglobin 0.5 Blood Gas A-a O2 Differential 115.6 H Oxyhemoglobin Percent 93.8 Total Hemoglobin 8.7 L Blood Gas Temperature 37.0 Blood Gas Respiration Rate 22.0 Blood Gas Actual Respiration Rate 23 Blood Gas Modality MASK - BIPAP FiO2 35.0 Blood Gas IPAP/EPAP Ratio 18/8 Blood Gas Notified Whom MH Blood Gas Notified Time 03/16/2017 5:27:32 AM Bedside Glucose 177 Medications Current Medications Aspirin (Aspirin) 325 mg DAILY PO Last administered on 03/16/17 08:38; Admin Dose 325 MG; Start 03/15/17 at 09:00 Docusate Sodium (Colace) 100 mg Q12H PRN PO CONSTIPATION; Start 03/14/17 at 12: 30 Atorvastatin Calcium (Lipitor) 20 mg HS PO Last administered on 03/15/17 20:51 ; Admin Dose 20 MG; Start 03/14/17 at 21:00 Enoxaparin Sodium (Lovenox) 30 mg DAILY SC Last administered on 03/16/17 08:39 ; Admin Dose 30 MG; Start 03/15/17 at 09:00 Ondansetron HCl (Zofran Inj) 4 mg Q6H PRN IV NAUSEA AND/OR VOMITING; Start 03/14/17 at 13:00 Acetaminophen (Tylenol Tab) 650 mg Q6H PRN PO PAIN LEVEL 1-3 OR FEVER; Start 03/14/17 at 13:00 Magnesium Hydroxide (Milk Of Mag) 30 ml DAILY PRN PO CONSTIPATION; Start at 13:00 Famotidine (Pepcid Iv) 20 mg Q24H IV Last administered on 03/15/17 20:50; Admin Dose 20 MG; Start 03/14/17 at 21:00 Diagnostic Test (Pha) (Accu-Chek) 1 ea 02 XX ; Start 03/15/17 at 02:00 Miscellaneous Information 1 ea NOTE XX ; Start 03/14/17 at 17:00 Glucose (Glutose) 15 gm Q15M PRN PO DECREASED GLUCOSE; Start 03/14/17 at 17:00 Glucose (Glutose) 22.5 gm Q15M PRN PO DECREASED GLUCOSE; Start 03/14/17 at 17: 00 Dextrose (D50w Syringe) 25 ml Q15M PRN IV DECREASED GLUCOSE; Start 03/14/17 at 17:00 Dextrose (D50w Syringe) 50 ml Q15M PRN IV DECREASED GLUCOSE; Start 03/14/17 at 17:00 Glucagon (Glucagen) 1 mg Q15M PRN IM DECREASED GLUCOSE; Start 03/14/17 at 17:00 Glucose (Glutose) 15 gm Q15M PRN BUCCAL DECREASED GLUCOSE; Start 03/14/17 at 17 :00 Hydralazine HCl 25 mg 25 mg BID PO Last administered on 03/15/17 20:52; Admin Dose 25 MG; Start 03/14/17 at 21:00 Cefepime HCl 50 ml @ 100 mls/hr Q12 IVPB Last administered on 03/16/17 08:37 ; Admin Dose 100 MLS/HR; Start 03/15/17 at 21:00 Vancomycin HCl/ Sodium Chloride (Vancocin/NS) 250 ml @ 83.333 mls/ hr Q12H IVPB Last administered on 03/16/17 00:52; Admin Dose 83.333 MLS/HR; Start 03/15/17 at 13:00 Methylprednisolone Sodium Succinate (Solu-Medrol) 60 mg BID IV Last administered on 03/16/17 08:37; Admin Dose 60 MG; Start 03/15/17 at 21:00 Miscellaneous Information (*Rx Drug Level Order Reminder*) VANCOMYCIN TROUGH AT 0000 ONCE ONCE XX ; Start 03/17/17 at 00:00; Stop 03/17/17 at 00:01 Assessment/Plan Additional Assessment/Plan IMP: 1. Acute on chronic Hypoxemic and hypercapnic respiratory failure. 2. CHF 3. Multifocal pneumonia 4. EDWIN--resolved 5. [facility]/MARY LOU RECS: 1. Continue BiPAP prn and during sleep 2. Continue broad-spectrum antibiotics 3. Taper solumedrol to 40 mg BID 4. Bronchodilators ATC 5. DVT prophylaxis 6. Okay for transfer to [place] 35 min cc time DARCY KOHLER MD Mar 16, 2017 12:42
[2017-03-16] MEDS ORDERED: FAMOTIDINE 20 MG TAB PO SCH (21:00)
--- NOTE | 2017-03-18 14:50 | RADRPT ---
Vent Rate: 98 bpm RR Interval: 0 msec [place] Interval: 162 msec QRS Duration: 80 msec QT Interval: 326 msec QTC Interval: 416 msec P-R-T [place]: 48 - 55 - 50 degrees Normal sinus rhythm Normal ECG Electronically Signed By: Josh Cote [id number]
--- NOTE | 2017-03-18 14:50 | RADRPT ---
Vent Rate: 98 bpm RR Interval: 0 msec [place] Interval: 162 msec QRS Duration: 80 msec QT Interval: 326 msec QTC Interval: 416 msec P-R-T [place]: 48 - 55 - 50 degrees Normal sinus rhythm Normal ECG Electronically Signed By: Josh Cote [id number]
--- NOTE | 2017-03-18 14:50 | RADRPT ---
Vent Rate: 98 bpm RR Interval: 0 msec [place] Interval: 162 msec QRS Duration: 80 msec QT Interval: 326 msec QTC Interval: 416 msec P-R-T [place]: 48 - 55 - 50 degrees Normal sinus rhythm Normal ECG Electronically Signed By: Josh Cote [id number]
== END 2017-03-16 22:14 | disposition short-term general hospital (02) | DRG 871 ==
LOC: E/R 07:38 → ICU 12:11
PROVIDERS: ADMIT Internal Medicine; ATTEND Internal Medicine
DX: A41.9 Sepsis, unspecified organism (principal); J18.9 Pneumonia, unspecified organism; I50.33 Acute on chronic diastolic (congestive) heart failure; N17.9 Acute kidney failure, unspecified; E87.2 Acidosis; J96.01 Acute respiratory failure with hypoxia; J96.02 Acute respiratory failure with hypercapnia; I11.0 Hypertensive heart disease with heart failure; J44.9 Chronic obstructive pulmonary disease, unspecified; D64.9 Anemia, unspecified; E11.9 Type 2 diabetes mellitus without complications; Z68.42 Body mass index [BMI] 45.0-49.9, adult; R65.20 Severe sepsis without septic shock; E66.01 Morbid (severe) obesity due to excess calories
CPT/HCPCS: 36600; 71010; 76775; 80048; 80053; 80061; 80069; 82550; 82553; 82803; 82962; 83036; 83540; 83605; 83735; 83880; 84484; 85025; 85610; 85730; 87040; 87081; 93005; 93306; 94640; 94660; 94664; 96372; 96374; 96375; 96376; J0692; J1200; J1644; J1650; J1815; J2060; J2930; J3370; J7030; J7050

== ENCOUNTER 2017-12-26 16:39 | Emergency (ER) | END 2017-12-26 22:00 | disposition short-term general hospital (02) ==

== ENCOUNTER 2018-01-20 10:43 | Emergency (ER) | END 2018-01-20 14:21 | disposition short-term general hospital (02) ==